=== PATIENT | male | born 1950 | race African-American/Black ===

== ENCOUNTER 2019-09-25 20:30 | Inpatient (IN) | payer MEDICARE, OTHER ==
[~2019-09-25] VITALS: Ht 182.9 cm; Wt 109.8 kg
[2019-09-25] MEDS ORDERED: SODIUM CHLORIDE 0.9% 1,000 ML IV ONE (20:36)
[2019-09-25 21:07] LABS: BG BASE EXCESS -27.5 mmol/L (-2.0-2.0); BG CARBOXYHEMOGLOBIN 0.3 % (0.5-1.5); BG FRACTION INSPIRED OXYGEN 28; BG HCO3 ACT 5.5 mmol/L (22.0-26.0); BG METHEMOGLOBIN 0.4 % (0.0-1.5); BG OXYGEN SATURATION 83.9 % (92.0-98.5); BG OXYHEMOGLOBIN 83.3 % (94.0-97.0); BG PCO2 33.4 mmHg (35.0-45.0); BG PH 6.835 (7.350-7.450); BG PO2 75.9 mmHg (75.0-100.0); BG SAMPLE SITE RIGHT RADIAL; BG TOTAL HEMOGLOBIN 11.1 g/dL (12.0-18.0); BG VENT MODE NASAL CANNULA
[2019-09-25] MEDS ORDERED: SODIUM BICARBONATE 8.4% 1 MEQ/ML 50ML SYR IV ONE ×3 (21:15→23:30)
[2019-09-25] MEDS ORDERED: ETOMIDATE 2MG/ML 10ML VIAL IV ONE (21:30)
[2019-09-25] MEDS ORDERED: MIDAZOLAM HCL 50 MG in DEXTROSE 5% WATER 40 ML IV ONE (21:30)
[2019-09-25] MEDS ORDERED: SODIUM CHLORIDE 0.9% 1000ML BAG (SEPSIS BOLUS) IV ONE (21:45)
[2019-09-25] MEDS ORDERED: PIPERACILLIN/TAZ 3.375G PREMIX 50 ML IV ONE (22:00)
[2019-09-25 22:01] LABS: HEMATOCRIT. 35.1 % (42.0-52.0); HEMOGLOBIN. 10.8 g/dL (14.0-18.0); MEAN CORPUSCULAR HEMOGLOBIN 33.2 pg (28.0-32.0); MEAN CORPUSCULAR VOLUME 108.3 fL (80.0-94.0); PLATELET 189 x1000/uL (130-400); RED BLOOD CELL COUNT 3.24 mill/uL (4.7-6.1); RED CELL DISTRIBUTION WIDTH 17.4 % (11.6-14.6)
[2019-09-25 22:09] LABS: CHLORIDE 110 mEq/L (98-107)
[2019-09-25 22:18] LABS: CREATINE KINASE 77 IU/L (39-308)
[2019-09-25 22:19] LABS: NUCLEATED RED BLOOD CELLS 4 /100 WBC; PLATELET ESTIMATE NORMAL
[2019-09-25 22:25] LABS: PROTHROMBIN TIME 10.6 sec (9.6-11.0)
[2019-09-25] MEDS ORDERED: ACETAMINOPHEN 325MG TABLET PO PRN (23:00)
[2019-09-25] MEDS ORDERED: DOCUSATE SODIUM 100MG CAPSULE PO PRN (23:00)
[2019-09-25] MEDS ORDERED: ONDANSETRON HCL 4MG/2ML INJ IV PRN (23:00)
[2019-09-25] MEDS ORDERED: GUAIFENESIN 200MG/10ML SUGAR FREE UDC PO PRN (23:00)
[2019-09-25] MEDS ORDERED: MAGNESIUM/ALUMINUM HYDROXIDE/SIMETHICONE 30ML UDC PO PRN (23:00)
[2019-09-25] MEDS ORDERED: IPRATROPIUM/ALBUTEROL 0.5-3(2.5)MG/3ML NEB ORI PRN (23:00)
[2019-09-25] MEDS ORDERED: PIPERACILLIN/TAZ 3.375G PREMIX 50 ML IV SCH (23:00)
[2019-09-25] MEDS ORDERED: NOREPINEPHRINE 4 MG in DEXT 5% WATER 246 ML IV PRN (23:00)
[2019-09-25 23:03] LABS: CLARITY URINE CLEAR (CLEAR); COLOR URINE DARK YELLOW (YELLOW); KETONES URINE TRACE (NEGATIVE); LEUKOCYTE ESTERASE URINE NEGATIVE (NEGATIVE); NITRITE URINE NEGATIVE (NEGATIVE); OCCULT BLOOD URINE NEGATIVE (NEGATIVE); PROTEIN URINE 3+ (NEGATIVE); SPECIFIC GRAVITY URINE 1.017 (1.005-1.030)
[2019-09-25 23:10] LABS: BG BASE EXCESS -24.2 mmol/L (-2.0-2.0); BG CARBOXYHEMOGLOBIN 0.3 % (0.5-1.5); BG DEOXYHEMOGLOBIN 35.5 % (0.0-5.0); BG FRACTION INSPIRED OXYGEN 100; BG HCO3 ACT 8.7 mmol/L (22.0-26.0); BG METHEMOGLOBIN 0.5 % (0.0-1.5); BG OXYGEN SATURATION 64.2 % (92.0-98.5); BG OXYHEMOGLOBIN 63.7 % (94.0-97.0); BG PCO2 50.4 mmHg (35.0-45.0); BG PH 6.855 (7.350-7.450); BG PO2 50.6 mmHg (75.0-100.0); BG SAMPLE SITE RIGHT RADIAL; BG TIDAL VOLUME(mL) 500 mL; BG TOTAL HEMOGLOBIN 10.1 g/dL (12.0-18.0); BG VENT MODE VENT - A/C; BG VENT RATE 20 set
[2019-09-25 23:12] LABS: *AMPHETAMINES SCREEN URINE NEGATIVE (NEGATIVE)
[2019-09-25 23:13] LABS: *BARBITURATES SCREEN URINE NEGATIVE (NEGATIVE); *BENZODIAZEPINES SCREEN URINE NEGATIVE (NEGATIVE); *COCAINE SCREEN URINE NEGATIVE (NEGATIVE); METHADONE URINE SCREEN NEGATIVE (NEGATIVE); OPIATES URINE SCREEN NEGATIVE (NEGATIVE); PHENCYCLIDINE URINE SCREEN NEGATIVE (NEGATIVE)
[2019-09-25 23:14] LABS: CANNABINOID URINE SCREEN NEGATIVE (NEGATIVE)
[2019-09-25] MEDS ORDERED: SODIUM BICARBONATE 150 MEQ in SODIUM CHLORIDE 0.45% 1,000 ML IV SCH (23:15)
[2019-09-25] MEDS ORDERED: ALBUMIN HUMAN 25GM/100ML (25%) IV ONE (23:30)
[2019-09-26] MEDS: DEXT 5%/0.45% NACL 1000ML 1,000 ML IV SCH ×2 (01:51→20:00)
[2019-09-26] MEDS ORDERED: VANCOMYCIN 1250MG in DEXTROSE 5% WATER 250ML IV NR (02:00)
[2019-09-26] MEDS ORDERED: MIDAZOLAM HCL 100 MG in DEXT 5% WATER 80 ML IV PRN (02:15)
[2019-09-26 05:25] LABS: BASOPHILS % 0.3 % (0.0-2.0); EOSINOPHILS % 0.1 % (0.0-5.0); HEMATOCRIT. 27.3 % (42.0-52.0); HEMOGLOBIN. 9.2 g/dL (14.0-18.0); LYMPHOCYTES % 14.5 % (20.0-50.0); MEAN CORPUSCULAR HEMOGLOBIN 33.9 pg (28.0-32.0); MEAN CORPUSCULAR VOLUME 100.7 fL (80.0-94.0); MEAN PLATELET VOLUME 8.2 fl (7.4-10.4); MONOCYTES % 6.5 % (2.0-8.0); NEUTROPHILS % 78.6 % (40.0-76.0); PLATELET 116 x1000/uL (130-400); RED BLOOD CELL COUNT 2.71 mill/uL (4.7-6.1); RED CELL DISTRIBUTION WIDTH 16.3 % (11.6-14.6)
[2019-09-26 05:40] LABS: CHLORIDE 111 mEq/L (98-107)
[2019-09-26 05:47] LABS: LDL CHOLESTEROL 62 mg/dL (5-100)
[2019-09-26 05:48] LABS: TOTAL IRON BINDING CAPACITY 146 ug/dL (250-450)
[2019-09-26 05:49] LABS: HDL CHOLESTEROL 93 mg/dL (40-59)
[2019-09-26 05:50] LABS: CREATINE KINASE 440 IU/L (39-308)
[2019-09-26 05:51] LABS: CREATINE KINASE MB FRACTION 11.8 ng/mL (0.5-3.6)
[2019-09-26 06:00] LABS: FOLIC ACID (FOLATE) SERUM 2.8 ng/mL (>5.38)
[2019-09-26 10:31] LABS: BG BASE EXCESS -8.1 mmol/L (-2.0-2.0); BG CARBOXYHEMOGLOBIN 0.2 % (0.5-1.5); BG DEOXYHEMOGLOBIN 0.7 % (0.0-5.0); BG FRACTION INSPIRED OXYGEN 100; BG HCO3 ACT 16.2 mmol/L (22.0-26.0); BG METHEMOGLOBIN 0.4 % (0.0-1.5); BG OXYGEN SATURATION 99.3 % (92.0-98.5); BG OXYHEMOGLOBIN 98.7 % (94.0-97.0); BG PCO2 29.5 mmHg (35.0-45.0); BG PH 7.358 (7.350-7.450); BG PO2 467.7 mmHg (75.0-100.0); BG SAMPLE SITE RIGHT RADIAL; BG TIDAL VOLUME(mL) 500 mL; BG TOTAL HEMOGLOBIN 10.6 g/dL (12.0-18.0); BG VENT MODE VENT - A/C; BG VENT RATE 24 set
[2019-09-26] MEDS ORDERED: PROPOFOL 10MG/ML 100ML 100 ML IV PRN (11:30)
[2019-09-26] MEDS ORDERED: FENTANYL CITRATE/PF 500 MCG in SODIUM CHLORIDE 0.9% 40 ML IV PRN (11:30)
[2019-09-26] MEDS ORDERED: IPRATROPIUM/ALBUTEROL 0.5-3(2.5)MG/3ML NEB HHN SCH (12:00)
[2019-09-26] MEDS ORDERED: SODIUM BICARBONATE 4% (2.4MEQ) 5ML VIAL IV ONE (12:46)
[2019-09-26] MEDS ORDERED: LIDOCAINE HCL 1% 20ML VIAL (Pyxis) INJ ONE (12:47)
[2019-09-26 15:17] LABS: CREATINE KINASE MB FRACTION 32.6 ng/mL (0.5-3.6)
[2019-09-26] MEDS: ENOXAPARIN 30MG/0.3ML SYR SUBCUT SCH (16:22)
[2019-09-26] MEDS: PANTOPRAZOLE SODIUM 40 MG/VIAL IV SCH (16:22)
[2019-09-26] MEDS: PIPERACILLIN/TAZOBACTAM 2.25 G in DEXTROSE 5% WATER 50 ML IV SCH (17:16)
[2019-09-26] MEDS ORDERED: ALBUMIN HUMAN 25GM/100ML (25%) IV SCH (21:30)
[2019-09-26] MEDS ORDERED: VASOPRESSIN 10 UNIT in SODIUM CHLORIDE 0.9% 100 ML IV PRN (21:45)
[2019-09-27] VITALS (52 sets, daily range): BP systolic 79–139; BP diastolic 41–86
[2019-09-27 04:31] LABS: CHLORIDE 111 mEq/L (98-107)
[2019-09-27 04:37] LABS: PHOSPHORUS 2.3 mg/dL (2.5-4.9)
[2019-09-27 05:16] LABS: BASOPHILS % 0.6 % (0.0-2.0); EOSINOPHILS % 0.4 % (0.0-5.0); HEMATOCRIT. 24.1 % (42.0-52.0); HEMOGLOBIN. 8.2 g/dL (14.0-18.0); LYMPHOCYTES % 8.3 % (20.0-50.0); MEAN CORPUSCULAR HEMOGLOBIN 33.6 pg (28.0-32.0); MEAN CORPUSCULAR VOLUME 98.4 fL (80.0-94.0); MEAN PLATELET VOLUME 8.9 fl (7.4-10.4); NEUTROPHILS % 85.7 % (40.0-76.0); PLATELET 92 x1000/uL (130-400); RED BLOOD CELL COUNT 2.45 mill/uL (4.7-6.1); RED CELL DISTRIBUTION WIDTH 15.3 % (11.6-14.6)
[2019-09-27] MEDS ORDERED: MAGNESIUM 4 G PREMIX 100 ML IV SCH (08:00)
[2019-09-27 08:12] LABS: CREATINE KINASE MB FRACTION 17.4 ng/mL (0.5-3.6)
[2019-09-27 08:27] LABS: BG CARBOXYHEMOGLOBIN 0.1 % (0.5-1.5); BG DEOXYHEMOGLOBIN 1.5 % (0.0-5.0); BG FRACTION INSPIRED OXYGEN 40; BG HCO3 ACT 22.2 mmol/L (22.0-26.0); BG METHEMOGLOBIN 0.4 % (0.0-1.5); BG OXYGEN SATURATION 98.5 % (92.0-98.5); BG PCO2 30.3 mmHg (35.0-45.0); BG PH 7.482 (7.350-7.450); BG PO2 138.2 mmHg (75.0-100.0); BG SAMPLE SITE RIGHT RADIAL; BG TIDAL VOLUME(mL) 500 mL; BG TOTAL HEMOGLOBIN 7.5 g/dL (12.0-18.0); BG VENT MODE VENT - A/C; BG VENT RATE 24 set
[2019-09-27] MEDS: ZINC SULFATE 220 MG ( 50 ) CAPSULE PO SCH ×2 (08:32→09:00)
[2019-09-27] MEDS: ASCORBIC ACID 500 MG TABLET PO SCH ×4 (08:32→21:43)
[2019-09-27] MEDS: PANTOPRAZOLE SODIUM 40 MG/VIAL IV SCH (09:35)
[2019-09-27] MEDS: ENOXAPARIN 30MG/0.3ML SYR SUBCUT SCH (09:35)
[2019-09-27] MEDS: DEXT 5%/0.45% NACL 1000ML 1,000 ML IV SCH (09:35)
[2019-09-27] MEDS ORDERED: VANCOMYCIN 1 G PREMIX 200 ML IV SCH ×2 (10:00→15:30)
[2019-09-27] MEDS: PIPERACILLIN/TAZOBACTAM 2.25 G in DEXTROSE 5% WATER 50 ML IV SCH ×2 (12:58→18:00)
[2019-09-27] MEDS ORDERED: PROPOFOL 10MG/ML 100ML 100 ML IV PRN (13:30)
[2019-09-27 14:17] LABS: HEMATOCRIT. 22.4 % (42.0-52.0); HEMOGLOBIN. 7.7 g/dL (14.0-18.0); MEAN CORPUSCULAR HEMOGLOBIN 33.4 pg (28.0-32.0); MEAN CORPUSCULAR VOLUME 97.6 fL (80.0-94.0); MEAN PLATELET VOLUME 8.4 fl (7.4-10.4); PLATELET 84 x1000/uL (130-400); RED CELL DISTRIBUTION WIDTH 15.4 % (11.6-14.6)
[2019-09-27] MEDS: FENTANYL 1,000 MCG in SODIUM CHLORIDE 0.9% 100 ML IV PRN (14:26)
[2019-09-27 14:31] LABS: CHLORIDE 111 mEq/L (98-107)
[2019-09-27 14:37] LABS: NUCLEATED RED BLOOD CELLS 2 /100 WBC; PHOSPHORUS 1.7 mg/dL (2.5-4.9)
[2019-09-27 14:38] LABS: PLATELET ESTIMATE DECREASED
[2019-09-27] MEDS ORDERED: MICONAZOLE NITRATE 2% OINT 71GM TOP SCH (21:00)
[2019-09-28] VITALS (83 sets, daily range): BP systolic 99–157; BP diastolic 47–81
[2019-09-28] MEDS: PIPERACILLIN/TAZOBACTAM 2.25 G in DEXTROSE 5% WATER 50 ML IV SCH ×6 (05:48→23:23)
[2019-09-28 06:17] LABS: T4 FREE 1.14 ng/dL (0.76-1.46)
[2019-09-28 08:47] LABS: VITAMIN B12 SERUM > 2000.0 pg/mL (211-911)
[2019-09-28] MEDS: PANTOPRAZOLE SODIUM 40 MG/VIAL IV SCH (08:57)
[2019-09-28] MEDS: ASCORBIC ACID 500 MG TABLET PO SCH ×2 (08:58→21:03)
[2019-09-28] MEDS: ZINC SULFATE 220 MG ( 50 ) CAPSULE PO SCH (08:58)
[2019-09-28 09:23] LABS: BG BASE EXCESS -1.8 mmol/L (-2.0-2.0); BG CARBOXYHEMOGLOBIN 0.3 % (0.5-1.5); BG DEOXYHEMOGLOBIN 1.4 % (0.0-5.0); BG FRACTION INSPIRED OXYGEN 40; BG METHEMOGLOBIN 0.3 % (0.0-1.5); BG OXYGEN SATURATION 98.6 % (92.0-98.5); BG PH 7.441 (7.350-7.450); BG PO2 149.2 mmHg (75.0-100.0); BG SAMPLE SITE RIGHT RADIAL; BG TIDAL VOLUME(mL) 500 mL; BG TOTAL HEMOGLOBIN 8.1 g/dL (12.0-18.0); BG VENT MODE VENT - A/C; BG VENT RATE 20 set
[2019-09-28] MEDS ORDERED: IPRATROPIUM/ALBUTEROL 0.5-3(2.5)MG/3ML NEB HHN PRN (09:45)
[2019-09-28] MEDS: DEXT 5%/0.45% NACL 1000ML 1,000 ML IV SCH ×2 (10:30→22:30)
[2019-09-28] MEDS: FENTANYL 1,000 MCG in SODIUM CHLORIDE 0.9% 100 ML IV PRN (13:02)
[2019-09-28] MEDS: IPRATROPIUM/ALBUTEROL 0.5-3(2.5)MG/3ML NEB HHN SCH ×2 (14:35→20:59)
[2019-09-28 16:55] LABS: BASOPHILS % 0.4 % (0.0-2.0); EOSINOPHILS % 0.7 % (0.0-5.0); HEMATOCRIT. 25.4 % (42.0-52.0); HEMOGLOBIN. 8.5 g/dL (14.0-18.0); MEAN CORPUSCULAR HEMOGLOBIN 33.4 pg (28.0-32.0); MEAN CORPUSCULAR VOLUME 99.4 fL (80.0-94.0); MEAN PLATELET VOLUME 9.1 fl (7.4-10.4); MONOCYTES % 5.9 % (2.0-8.0); PLATELET 67 x1000/uL (130-400); RED BLOOD CELL COUNT 2.56 mill/uL (4.7-6.1); RED CELL DISTRIBUTION WIDTH 16.1 % (11.6-14.6)
[2019-09-28 17:01] LABS: CHLORIDE 118 mEq/L (98-107)
[2019-09-28 17:08] LABS: PHOSPHORUS 1.8 mg/dL (2.5-4.9)
[2019-09-28 17:58] LABS: HEPATITIS A AB IGM NEGATIVE (NEGATIVE)
[2019-09-28 18:06] LABS: HEPATITIS B SURFACE ANTIGEN REACTIVE PEND CONFIR
[2019-09-28] MEDS ORDERED: SODIUM CHLORIDE 0.9% 1000ML BAG (SEPSIS BOLUS) IV ONE (20:45)
[2019-09-28] MEDS ORDERED: SODIUM CHLORIDE 0.9% 500 ML IV SCH (21:00)
[2019-09-28] MEDS ORDERED: POTASSIUM PHOS,M-BASIC-D-BASIC 20 MMOL in DEXT 5% WATER 243.3333 ML IV NR (22:00)
[2019-09-29] VITALS (46 sets, daily range): BP systolic 84–162; BP diastolic 42–95
[2019-09-29] MEDS: ACETAMINOPHEN 325MG TABLET PO PRN ×2 (01:27→17:29)
[2019-09-29] MEDS: LORAZEPAM 2MG/ML CPJ IV PRN ×3 (02:00→14:52)
[2019-09-29] MEDS: IPRATROPIUM/ALBUTEROL 0.5-3(2.5)MG/3ML NEB HHN SCH ×4 (02:46→20:37)
[2019-09-29] MEDS: PIPERACILLIN/TAZOBACTAM 2.25 G in DEXTROSE 5% WATER 50 ML IV SCH ×4 (06:09→23:09)
[2019-09-29 06:46] LABS: HEMATOCRIT. 22.3 % (42.0-52.0); HEMOGLOBIN. 7.5 g/dL (14.0-18.0); MEAN CORPUSCULAR HEMOGLOBIN 33.4 pg (28.0-32.0); MEAN CORPUSCULAR VOLUME 99.4 fL (80.0-94.0); MEAN PLATELET VOLUME 9.2 fl (7.4-10.4); PLATELET 55 x1000/uL (130-400); RED BLOOD CELL COUNT 2.24 mill/uL (4.7-6.1); RED CELL DISTRIBUTION WIDTH 15.8 % (11.6-14.6)
[2019-09-29 07:33] LABS: CHLORIDE 114 mEq/L (98-107)
[2019-09-29 07:35] LABS: PHOSPHORUS 2.8 mg/dL (2.5-4.9)
[2019-09-29 07:38] LABS: CREATINE KINASE 904 IU/L (39-308)
[2019-09-29] MEDS: PANTOPRAZOLE SODIUM 40 MG/VIAL IV SCH (08:56)
[2019-09-29] MEDS: DEXT 5%/0.45% NACL 1000ML 1,000 ML IV SCH ×2 (08:56→17:29)
[2019-09-29] MEDS: ASCORBIC ACID 500 MG TABLET PO SCH ×2 (08:56→20:15)
[2019-09-29] MEDS: ZINC SULFATE 220 MG ( 50 ) CAPSULE PO SCH (08:56)
[2019-09-29] MEDS: FENTANYL 1,000 MCG in SODIUM CHLORIDE 0.9% 100 ML IV PRN ×2 (08:59→23:15)
[2019-09-29 10:11] LABS: BG BASE EXCESS -4.4 mmol/L (-2.0-2.0); BG CARBOXYHEMOGLOBIN 0.6 % (0.5-1.5); BG DEOXYHEMOGLOBIN 1.9 % (0.0-5.0); BG FRACTION INSPIRED OXYGEN 40; BG METHEMOGLOBIN 0.1 % (0.0-1.5); BG OXYGEN SATURATION 98.1 % (92.0-98.5); BG OXYHEMOGLOBIN 97.4 % (94.0-97.0); BG PCO2 33.5 mmHg (35.0-45.0); BG PH 7.394 (7.350-7.450); BG PO2 157.8 mmHg (75.0-100.0); BG SAMPLE SITE RIGHT RADIAL; BG TIDAL VOLUME(mL) 500 mL; BG TOTAL HEMOGLOBIN 7.7 g/dL (12.0-18.0); BG VENT MODE VENT - A/C; BG VENT RATE 18 set
[2019-09-29 11:16] LABS: PLATELET ESTIMATE DECREASED
[2019-09-29] MEDS ORDERED: VANCOMYCIN 1 G PREMIX 200 ML IV SCH (12:00)
[2019-09-29] MEDS ORDERED: VANCOMYCIN 1 G PREMIX 200 ML IV NR (12:00)
[2019-09-29] MEDS ORDERED: MAGNESIUM 2 G PREMIX 50 ML IV SCH (20:30)
[2019-09-30] VITALS (48 sets, daily range): BP systolic 89–152; BP diastolic 29–102
[2019-09-30] MEDS: IPRATROPIUM/ALBUTEROL 0.5-3(2.5)MG/3ML NEB HHN SCH ×4 (02:04→21:46)
[2019-09-30] MEDS: ACETAMINOPHEN 325MG TABLET PO PRN ×2 (03:39→20:37)
[2019-09-30] MEDS: PIPERACILLIN/TAZOBACTAM 2.25 G in DEXTROSE 5% WATER 50 ML IV SCH ×4 (05:18→23:04)
[2019-09-30 05:44] LABS: CHLORIDE 115 mEq/L (98-107)
[2019-09-30 05:53] LABS: PHOSPHORUS 1.8 mg/dL (2.5-4.9)
[2019-09-30 05:56] LABS: CREATINE KINASE 640 IU/L (39-308)
[2019-09-30 06:56] LABS: HEMOGLOBIN. 7.3 g/dL (14.0-18.0); MEAN CORPUSCULAR HEMOGLOBIN 34.3 pg (28.0-32.0); MEAN CORPUSCULAR VOLUME 97.7 fL (80.0-94.0); MEAN PLATELET VOLUME 8.1 fl (7.4-10.4); RED BLOOD CELL COUNT 2.14 mill/uL (4.7-6.1); RED CELL DISTRIBUTION WIDTH 15.8 % (11.6-14.6)
[2019-09-30 07:23] LABS: HEMATOCRIT. 20.9 % (42.0-52.0); PLATELET 38 x1000/uL (130-400)
[2019-09-30] MEDS: ASCORBIC ACID 500 MG TABLET PO SCH ×2 (08:20→20:32)
[2019-09-30] MEDS: PANTOPRAZOLE SODIUM 40 MG/VIAL IV SCH (08:20)
[2019-09-30] MEDS: ZINC SULFATE 220 MG ( 50 ) CAPSULE PO SCH (08:20)
[2019-09-30] MEDS: FENTANYL 1,000 MCG in SODIUM CHLORIDE 0.9% 100 ML IV PRN ×2 (09:09→21:39)
[2019-09-30 09:38] LABS: BG BASE EXCESS -3.8 mmol/L (-2.0-2.0); BG CARBOXYHEMOGLOBIN 0.3 % (0.5-1.5); BG DEOXYHEMOGLOBIN 1.9 % (0.0-5.0); BG FRACTION INSPIRED OXYGEN 30; BG HCO3 ACT 20.1 mmol/L (22.0-26.0); BG METHEMOGLOBIN 0.5 % (0.0-1.5); BG OXYGEN SATURATION 98.1 % (92.0-98.5); BG OXYHEMOGLOBIN 97.3 % (94.0-97.0); BG PH 7.429 (7.350-7.450); BG PO2 124.7 mmHg (75.0-100.0); BG SAMPLE SITE RIGHT RADIAL; BG TIDAL VOLUME(mL) 500 mL; BG TOTAL HEMOGLOBIN 6.8 g/dL (12.0-18.0); BG VENT MODE VENT - A/C; BG VENT RATE 14 set
[2019-09-30] MEDS: LORAZEPAM 2MG/ML CPJ IV PRN (10:09)
[2019-09-30] MEDS: DEXT 5%/0.45% NACL 1000ML 1,000 ML IV SCH (11:52)
[2019-09-30 12:07] LABS: PLATELET ESTIMATE MARKEDLY DECREASED
[2019-09-30 16:31] LABS: BG BASE EXCESS -2.6 mmol/L (-2.0-2.0); BG CARBOXYHEMOGLOBIN 0.5 % (0.5-1.5); BG DEOXYHEMOGLOBIN 3.2 % (0.0-5.0); BG FRACTION INSPIRED OXYGEN 30; BG HCO3 ACT 22.1 mmol/L (22.0-26.0); BG METHEMOGLOBIN 0.7 % (0.0-1.5); BG OXYGEN SATURATION 96.8 % (92.0-98.5); BG OXYHEMOGLOBIN 95.6 % (94.0-97.0); BG PCO2 37.3 mmHg (35.0-45.0); BG PO2 91.7 mmHg (75.0-100.0); BG PRESSURE SUPPORT 15; BG SAMPLE SITE RIGHT RADIAL; BG TIDAL VOLUME(mL) 500 mL; BG TOTAL HEMOGLOBIN 7.3 g/dL (12.0-18.0); BG VENT MODE VENT - SIMV; BG VENT RATE 10 set
[2019-09-30] MEDS ORDERED: POTASSIUM PHOS,M-BASIC-D-BASIC 20 MMOL in DEXT 5% WATER 250 ML IV NR (19:00)
[2019-09-30] MEDS ORDERED: MAGNESIUM 2 G PREMIX 50 ML IV SCH (20:00)
[2019-09-30] MEDS: METOPROLOL TARTRATE 25MG TABLET NG SCH (20:33)
[2019-09-30] MEDS ORDERED: VANCOMYCIN 1 G PREMIX 200 ML IV NR (22:30)
[2019-10-01] VITALS (70 sets, daily range): BP systolic 89–147; BP diastolic 43–100
[2019-10-01] MEDS: IPRATROPIUM/ALBUTEROL 0.5-3(2.5)MG/3ML NEB HHN SCH ×4 (04:11→19:53)
[2019-10-01] MEDS: PIPERACILLIN/TAZOBACTAM 2.25 G in DEXTROSE 5% WATER 50 ML IV SCH (05:04)
[2019-10-01 05:57] LABS: MEAN CORPUSCULAR HEMOGLOBIN 33.9 pg (28.0-32.0); MEAN CORPUSCULAR VOLUME 98.5 fL (80.0-94.0); MEAN PLATELET VOLUME 8.9 fl (7.4-10.4); PLATELET 59 x1000/uL (130-400); RED BLOOD CELL COUNT 1.99 mill/uL (4.7-6.1); RED CELL DISTRIBUTION WIDTH 15.8 % (11.6-14.6)
[2019-10-01 06:00] LABS: HEMOGLOBIN. 6.7 g/dL (14.0-18.0)
[2019-10-01 06:01] LABS: HEMATOCRIT. 19.6 % (42.0-52.0)
[2019-10-01 06:25] LABS: CHLORIDE 112 mEq/L (98-107)
[2019-10-01 06:30] LABS: PHOSPHORUS 2.8 mg/dL (2.5-4.9)
[2019-10-01 07:56] LABS: BG BASE EXCESS -2.2 mmol/L (-2.0-2.0); BG CARBOXYHEMOGLOBIN 0.3 % (0.5-1.5); BG DEOXYHEMOGLOBIN 1.3 % (0.0-5.0); BG FRACTION INSPIRED OXYGEN 30; BG HCO3 ACT 21.4 mmol/L (22.0-26.0); BG METHEMOGLOBIN 0.6 % (0.0-1.5); BG OXYGEN SATURATION 98.7 % (92.0-98.5); BG OXYHEMOGLOBIN 97.8 % (94.0-97.0); BG PCO2 31.3 mmHg (35.0-45.0); BG PH 7.453 (7.350-7.450); BG PO2 147.2 mmHg (75.0-100.0); BG SAMPLE SITE RIGHT RADIAL; BG TIDAL VOLUME(mL) 500 mL; BG TOTAL HEMOGLOBIN 6.7 g/dL (12.0-18.0); BG VENT MODE VENT - A/C; BG VENT RATE 14 set
[2019-10-01] MEDS: PANTOPRAZOLE SODIUM 40 MG/VIAL IV SCH (08:46)
[2019-10-01] MEDS: ASCORBIC ACID 500 MG TABLET PO SCH ×2 (08:46→21:39)
[2019-10-01] MEDS: DEXT 5%/0.45% NACL 1000ML 1,000 ML IV SCH (08:47)
[2019-10-01] MEDS: ZINC SULFATE 220 MG ( 50 ) CAPSULE PO SCH (08:47)
[2019-10-01] MEDS: METOPROLOL TARTRATE 25MG TABLET NG SCH ×2 (08:47→21:39)
[2019-10-01] MEDS: ACETAMINOPHEN 325MG TABLET PO PRN (09:06)
[2019-10-01] MEDS: FENTANYL 1,000 MCG in SODIUM CHLORIDE 0.9% 100 ML IV PRN ×3 (09:07→20:02)
[2019-10-01] MEDS ORDERED: FENTANYL CITRATE/PF 500 MCG in SODIUM CHLORIDE 0.9% 40 ML IV PRN (10:15)
[2019-10-01 11:02] LABS: NUCLEATED RED BLOOD CELLS 1 /100 WBC; PLATELET ESTIMATE DECREASED
[2019-10-01] MEDS: PROPOFOL 10MG/ML 100ML 100 ML IV PRN (15:46)
[2019-10-01 17:46] LABS: HEMOGLOBIN 7.1 g/dL (14.0-18.0)
[2019-10-01 17:50] LABS: HEMATOCRIT 20.7 % (42.0-52.0)
[2019-10-02] VITALS (74 sets, daily range): BP systolic 74–184; BP diastolic 16–130
[2019-10-02] MEDS: FENTANYL 1,000 MCG in SODIUM CHLORIDE 0.9% 100 ML IV PRN ×2 (01:31→07:47)
[2019-10-02] MEDS: IPRATROPIUM/ALBUTEROL 0.5-3(2.5)MG/3ML NEB HHN SCH ×3 (01:57→20:56)
[2019-10-02] MEDS: PROPOFOL 10MG/ML 100ML 100 ML IV PRN ×3 (03:00→09:23)
[2019-10-02] MEDS: DEXT 5%/0.45% NACL 1000ML 1,000 ML IV SCH (05:16)
[2019-10-02 06:50] LABS: CHLORIDE 112 mEq/L (98-107)
[2019-10-02 07:03] LABS: PHOSPHORUS 2.4 mg/dL (2.5-4.9)
[2019-10-02 07:30] LABS: HEMOGLOBIN. 8.9 g/dL (14.0-18.0); MEAN CORPUSCULAR HEMOGLOBIN 32.5 pg (28.0-32.0); MEAN CORPUSCULAR VOLUME 94.7 fL (80.0-94.0); MEAN PLATELET VOLUME 9.1 fl (7.4-10.4); PLATELET 79 x1000/uL (130-400); RED BLOOD CELL COUNT 2.75 mill/uL (4.7-6.1); RED CELL DISTRIBUTION WIDTH 17.5 % (11.6-14.6)
[2019-10-02] MEDS: METOPROLOL TARTRATE 25MG TABLET NG SCH ×2 (09:00→21:19)
[2019-10-02] MEDS: ZINC SULFATE 220 MG ( 50 ) CAPSULE PO SCH (09:21)
[2019-10-02] MEDS: ASCORBIC ACID 500 MG TABLET PO SCH ×2 (09:21→21:18)
[2019-10-02] MEDS: PANTOPRAZOLE SODIUM 40 MG/VIAL IV SCH (09:21)
[2019-10-02 11:04] LABS: BG CARBOXYHEMOGLOBIN 0.2 % (0.5-1.5); BG DEOXYHEMOGLOBIN 2.3 % (0.0-5.0); BG FRACTION INSPIRED OXYGEN 30; BG HCO3 ACT 21.3 mmol/L (22.0-26.0); BG METHEMOGLOBIN 0.4 % (0.0-1.5); BG OXYGEN SATURATION 97.7 % (92.0-98.5); BG OXYHEMOGLOBIN 97.1 % (94.0-97.0); BG PCO2 35.1 mmHg (35.0-45.0); BG PH 7.401 (7.350-7.450); BG PRESSURE SUPPORT 8; BG SAMPLE SITE RIGHT RADIAL; BG TOTAL HEMOGLOBIN 9.1 g/dL (12.0-18.0); BG VENT MODE VENT - CPAP
[2019-10-02 12:54] LABS: NUCLEATED RED BLOOD CELLS 1 /100 WBC
[2019-10-02 12:55] LABS: PLATELET ESTIMATE DECREASED
[2019-10-02] MEDS: MORPHINE SULFATE 2 MG/ML CPJ (NOT FOR IM USE) IV PRN ×2 (13:44→21:20)
[2019-10-02] MEDS: LORAZEPAM 2MG/ML CPJ IV PRN (15:34)
[2019-10-02] MEDS: ACETAMINOPHEN 325MG TABLET PO PRN (21:18)
[2019-10-03] VITALS (45 sets, daily range): BP systolic 105–177; BP diastolic 16–126
[2019-10-03] MEDS: LORAZEPAM 2MG/ML CPJ IV PRN (00:25)
[2019-10-03] MEDS: DEXT 5%/0.45% NACL 1000ML 1,000 ML IV SCH ×2 (00:38→21:07)
[2019-10-03] MEDS: IPRATROPIUM/ALBUTEROL 0.5-3(2.5)MG/3ML NEB HHN SCH ×4 (01:14→20:37)
[2019-10-03] MEDS: CLONIDINE 0.1MG TABLET PO PRN (03:36)
[2019-10-03] MEDS: MORPHINE SULFATE 2 MG/ML CPJ (NOT FOR IM USE) IV PRN (03:57)
[2019-10-03 05:16] LABS: HEMATOCRIT. 25.4 % (42.0-52.0); HEMOGLOBIN. 8.7 g/dL (14.0-18.0); MEAN CORPUSCULAR HEMOGLOBIN 32.5 pg (28.0-32.0); MEAN CORPUSCULAR VOLUME 94.3 fL (80.0-94.0); MEAN PLATELET VOLUME 8.5 fl (7.4-10.4); PLATELET 135 x1000/uL (130-400); RED BLOOD CELL COUNT 2.69 mill/uL (4.7-6.1); RED CELL DISTRIBUTION WIDTH 17.8 % (11.6-14.6)
[2019-10-03 05:25] LABS: CHLORIDE 115 mEq/L (98-107)
[2019-10-03 05:30] LABS: PHOSPHORUS 2.2 mg/dL (2.5-4.9)
[2019-10-03] MEDS: PANTOPRAZOLE SODIUM 40 MG/VIAL IV SCH (09:52)
[2019-10-03] MEDS: ASCORBIC ACID 500 MG TABLET PO SCH ×3 (09:53→21:07)
[2019-10-03] MEDS: METOPROLOL TARTRATE 25MG TABLET NG SCH ×3 (09:53→21:07)
[2019-10-03] MEDS: ZINC SULFATE 220 MG ( 50 ) CAPSULE PO SCH (09:53)
[2019-10-03] MEDS ORDERED: POTASSIUM PHOS,M-BASIC-D-BASIC 15 MMOL in DEXT 5% WATER 245 ML IV NR (11:00)
[2019-10-03 14:04] LABS: NUCLEATED RED BLOOD CELLS 2 /100 WBC; PLATELET ESTIMATE NORMAL
[2019-10-03] MEDS: FOLIC ACID 1MG TABLET PO SCH (18:32)
[2019-10-03] MEDS: THIAMINE HCL 100MG TABLET PO SCH (18:32)
[2019-10-03] MEDS: LACTULOSE 20G/30ML UDC PO NR ×2 (19:45→21:07)
[2019-10-04] VITALS (12 sets, daily range): BP systolic 122–164; BP diastolic 60–98
[2019-10-04] MEDS: IPRATROPIUM/ALBUTEROL 0.5-3(2.5)MG/3ML NEB HHN SCH ×5 (02:12→21:28)
[2019-10-04] MEDS: CLONIDINE 0.1MG TABLET PO PRN (05:48)
[2019-10-04 06:52] LABS: CHLORIDE 115 mEq/L (98-107)
[2019-10-04 06:58] LABS: PHOSPHORUS 2.1 mg/dL (2.5-4.9)
[2019-10-04] MEDS: FOLIC ACID 1MG TABLET PO SCH (08:36)
[2019-10-04] MEDS: ASCORBIC ACID 500 MG TABLET PO SCH ×2 (08:36→22:40)
[2019-10-04] MEDS: ZINC SULFATE 220 MG ( 50 ) CAPSULE PO SCH (08:36)
[2019-10-04] MEDS: METOPROLOL TARTRATE 25MG TABLET NG SCH ×2 (08:40→22:39)
[2019-10-04] MEDS: PANTOPRAZOLE SODIUM 40 MG/VIAL IV SCH (08:41)
[2019-10-04] MEDS: THIAMINE HCL 100MG TABLET PO SCH (08:42)
[2019-10-04] MEDS ORDERED: LACTULOSE 20G/30ML UDC PO NR (08:45)
[2019-10-04] MEDS: LORAZEPAM 2MG/ML CPJ IV PRN (08:47)
[2019-10-04 09:40] LABS: HEMATOCRIT. 26.1 % (42.0-52.0); MEAN CORPUSCULAR HEMOGLOBIN 32.2 pg (28.0-32.0); MEAN PLATELET VOLUME 8.5 fl (7.4-10.4); PLATELET 220 x1000/uL (130-400); RED BLOOD CELL COUNT 2.78 mill/uL (4.7-6.1)
[2019-10-04 10:33] LABS: PLATELET ESTIMATE NORMAL
[2019-10-04] MEDS ORDERED: POTASSIUM CHLORIDE 20MEQ TABLET SR PO NR (10:45)
[2019-10-04] MEDS ORDERED: MAGNESIUM OXIDE 400MG TABLET PO NR (10:45)
[2019-10-04] MEDS ORDERED: POTASSIUM PHOS,M-BASIC-D-BASIC 20 MMOL in DEXT 5% WATER 243.3333 ML IV NR (13:00)
[2019-10-04] MEDS ORDERED: MAGNESIUM 2 G PREMIX 50 ML IV NR (13:00)
[2019-10-04] MEDS ORDERED: REGADENOSON 0.4 MG/5 ML IV NR (16:15)
[2019-10-04] MEDS: MULTIVITAMINS,THER W-MINERALS TABLET PO SCH (17:12)
[2019-10-04] MEDS: DEXT 5%/0.45% NACL 1000ML 1,000 ML IV SCH (17:13)
[2019-10-05] VITALS (11 sets, daily range): BP systolic 132–173; BP diastolic 69–88
[2019-10-05] MEDS: IPRATROPIUM/ALBUTEROL 0.5-3(2.5)MG/3ML NEB HHN SCH ×4 (00:52→23:55)
[2019-10-05] MEDS: PANTOPRAZOLE SODIUM 40 MG/VIAL IV SCH (08:51)
[2019-10-05] MEDS: ZINC SULFATE 220 MG ( 50 ) CAPSULE PO SCH (08:51)
[2019-10-05] MEDS: THIAMINE HCL 100MG TABLET PO SCH (08:51)
[2019-10-05] MEDS: ASCORBIC ACID 500 MG TABLET PO SCH ×2 (08:51→19:58)
[2019-10-05] MEDS: MULTIVITAMINS,THER W-MINERALS TABLET PO SCH (08:51)
[2019-10-05] MEDS: FOLIC ACID 1MG TABLET PO SCH (08:51)
[2019-10-05] MEDS: METOPROLOL TARTRATE 25MG TABLET NG SCH ×2 (08:52→19:58)
[2019-10-05] MEDS: LACTULOSE 20G/30ML UDC PO SCH (09:43)
[2019-10-05] MEDS: LORAZEPAM 2MG/ML CPJ IV PRN (09:47)
[2019-10-05] MEDS: DEXT 5%/0.45% NACL 1000ML 1,000 ML IV SCH (12:52)
[2019-10-05 16:11] LABS: BG BASE EXCESS -6.5 mmol/L (-2.0-2.0); BG DEOXYHEMOGLOBIN 3.5 % (0.0-5.0); BG FRACTION INSPIRED OXYGEN 21; BG HCO3 ACT 15.6 mmol/L (22.0-26.0); BG METHEMOGLOBIN 0.2 % (0.0-1.5); BG OXYGEN SATURATION 96.5 % (92.0-98.5); BG OXYHEMOGLOBIN 96.3 % (94.0-97.0); BG PCO2 20.9 mmHg (35.0-45.0); BG PH 7.491 (7.350-7.450); BG PO2 89.5 mmHg (75.0-100.0); BG SAMPLE SITE RIGHT RADIAL; BG TOTAL HEMOGLOBIN 8.5 g/dL (12.0-18.0); BG VENT MODE ROOM AIR
[2019-10-05] MEDS ORDERED: MAGNESIUM 2 G PREMIX 50 ML IV NR (17:00)
[2019-10-05] MEDS ORDERED: POTASSIUM PHOS,M-BASIC-D-BASIC 20 MMOL in DEXT 5% WATER 243.3333 ML IV NR (17:30)
[2019-10-05 17:38] LABS: CHLORIDE 115 mEq/L (98-107)
[2019-10-05 17:43] LABS: HEMOGLOBIN. 8.6 g/dL (14.0-18.0); MEAN CORPUSCULAR HEMOGLOBIN 31.5 pg (28.0-32.0); MEAN CORPUSCULAR VOLUME 95.2 fL (80.0-94.0); MEAN PLATELET VOLUME 8.9 fl (7.4-10.4); PLATELET 299 x1000/uL (130-400); RED BLOOD CELL COUNT 2.73 mill/uL (4.7-6.1)
[2019-10-05 17:44] LABS: PHOSPHORUS 2.8 mg/dL (2.5-4.9)
[2019-10-05 19:33] LABS: ATYPICAL LYMPHOCYTES 1; PLATELET ESTIMATE NORMAL
[2019-10-05] MEDS: CLONIDINE 0.1MG TABLET PO PRN (23:32)
[2019-10-06] VITALS (12 sets, daily range): BP systolic 118–178; BP diastolic 51–102
[2019-10-06] MEDS: LORAZEPAM 2MG/ML CPJ IV PRN (00:52)
[2019-10-06 07:32] LABS: HEMATOCRIT 25.9 % (42.0-52.0); HEMOGLOBIN 8.8 g/dL (14.0-18.0); MEAN CORPUSCULAR HEMOGLOBIN 32.1 pg (28.0-32.0); MEAN CORPUSCULAR VOLUME 94.8 fL (80.0-94.0); PLATELET 357 x1000/uL (130-400); RED BLOOD CELL COUNT 2.73 mill/uL (4.7-6.1); RED CELL DISTRIBUTION WIDTH 17.4 % (11.6-14.6)
[2019-10-06 07:58] LABS: CHLORIDE 112 mEq/L (98-107)
[2019-10-06] MEDS: PANTOPRAZOLE SODIUM 40 MG/VIAL IV SCH (08:23)
[2019-10-06] MEDS: MULTIVITAMINS,THER W-MINERALS TABLET PO SCH (08:23)
[2019-10-06] MEDS: METOPROLOL TARTRATE 25MG TABLET NG SCH ×2 (08:23→21:11)
[2019-10-06] MEDS: THIAMINE HCL 100MG TABLET PO SCH (08:23)
[2019-10-06] MEDS: ZINC SULFATE 220 MG ( 50 ) CAPSULE PO SCH (08:23)
[2019-10-06] MEDS: FOLIC ACID 1MG TABLET PO SCH (08:23)
[2019-10-06] MEDS: ASCORBIC ACID 500 MG TABLET PO SCH ×2 (08:23→21:11)
[2019-10-06] MEDS: LACTULOSE 20G/30ML UDC PO SCH (08:44)
[2019-10-06] MEDS: DEXT 5%/0.45% NACL 1000ML 1,000 ML IV SCH (08:44)
[2019-10-06] MEDS: IPRATROPIUM/ALBUTEROL 0.5-3(2.5)MG/3ML NEB HHN SCH ×3 (08:57→20:08)
[2019-10-07] VITALS (12 sets, daily range): BP systolic 113–167; BP diastolic 26–87
[2019-10-07] MEDS: IPRATROPIUM/ALBUTEROL 0.5-3(2.5)MG/3ML NEB HHN SCH ×4 (02:07→20:13)
[2019-10-07 06:17] LABS: HEMATOCRIT. 25.1 % (42.0-52.0); HEMOGLOBIN. 8.6 g/dL (14.0-18.0); MEAN CORPUSCULAR HEMOGLOBIN 32.1 pg (28.0-32.0); MEAN CORPUSCULAR VOLUME 93.6 fL (80.0-94.0); MEAN PLATELET VOLUME 8.5 fl (7.4-10.4); PLATELET 464 x1000/uL (130-400); RED BLOOD CELL COUNT 2.68 mill/uL (4.7-6.1); RED CELL DISTRIBUTION WIDTH 17.4 % (11.6-14.6)
[2019-10-07 06:57] LABS: CHLORIDE 111 mEq/L (98-107)
[2019-10-07 07:02] LABS: PHOSPHORUS 2.6 mg/dL (2.5-4.9)
[2019-10-07] MEDS: ASCORBIC ACID 500 MG TABLET PO SCH ×2 (09:11→22:00)
[2019-10-07] MEDS: ZINC SULFATE 220 MG ( 50 ) CAPSULE PO SCH (09:11)
[2019-10-07] MEDS: MULTIVITAMINS,THER W-MINERALS TABLET PO SCH (09:11)
[2019-10-07] MEDS: THIAMINE HCL 100MG TABLET PO SCH (09:12)
[2019-10-07] MEDS: FOLIC ACID 1MG TABLET PO SCH (09:12)
[2019-10-07] MEDS: METOPROLOL TARTRATE 25MG TABLET NG SCH ×2 (09:12→22:00)
[2019-10-07] MEDS: PANTOPRAZOLE SODIUM 40 MG/VIAL IV SCH (09:12)
[2019-10-07] MEDS: LACTULOSE 20G/30ML UDC PO SCH (09:44)
[2019-10-07] MEDS ORDERED: POTASSIUM CHLORIDE 20MEQ TABLET SR PO SCH (11:00)
[2019-10-07] MEDS: MAGNESIUM 2 G PREMIX 50 ML IV SCH ×2 (14:00→14:50)
[2019-10-07 14:05] LABS: PLATELET ESTIMATE INCREASED
[2019-10-08] VITALS (12 sets, daily range): BP systolic 114–161; BP diastolic 60–84
[2019-10-08] MEDS: CLONIDINE 0.1MG TABLET PO PRN (06:37)
[2019-10-08 07:03] LABS: HEMATOCRIT. 24.6 % (42.0-52.0); HEMOGLOBIN. 8.3 g/dL (14.0-18.0); MEAN CORPUSCULAR HEMOGLOBIN 32.1 pg (28.0-32.0); MEAN CORPUSCULAR VOLUME 95.1 fL (80.0-94.0); MEAN PLATELET VOLUME 8.7 fl (7.4-10.4); PLATELET 550 x1000/uL (130-400); RED BLOOD CELL COUNT 2.58 mill/uL (4.7-6.1)
[2019-10-08 08:24] LABS: CHLORIDE 112 mEq/L (98-107)
[2019-10-08] MEDS: PANTOPRAZOLE SODIUM 40 MG/VIAL IV SCH (08:25)
[2019-10-08] MEDS: MULTIVITAMINS,THER W-MINERALS TABLET PO SCH (08:26)
[2019-10-08] MEDS: ASCORBIC ACID 500 MG TABLET PO SCH ×2 (08:26→20:27)
[2019-10-08] MEDS: ZINC SULFATE 220 MG ( 50 ) CAPSULE PO SCH (08:26)
[2019-10-08] MEDS: THIAMINE HCL 100MG TABLET PO SCH (08:26)
[2019-10-08] MEDS: METOPROLOL TARTRATE 25MG TABLET NG SCH (08:26)
[2019-10-08] MEDS: FOLIC ACID 1MG TABLET PO SCH (08:26)
[2019-10-08] MEDS: LACTULOSE 20G/30ML UDC PO SCH (08:26)
[2019-10-08 08:33] LABS: PHOSPHORUS 2.4 mg/dL (2.5-4.9)
[2019-10-08] MEDS: IPRATROPIUM/ALBUTEROL 0.5-3(2.5)MG/3ML NEB HHN SCH ×4 (09:20→20:42)
[2019-10-08] MEDS ORDERED: AMLODIPINE 5MG TABLET PO SCH (10:00)
[2019-10-08] MEDS ORDERED: METOPROLOL TARTRATE 25MG TABLET PO NR (10:10)
[2019-10-08 13:11] LABS: NUCLEATED RED BLOOD CELLS 2 /100 WBC
[2019-10-08 13:12] LABS: PLATELET ESTIMATE INCREASED
[2019-10-08] MEDS ORDERED: MAGNESIUM 2 G PREMIX 50 ML IV NR (16:00)
[2019-10-08] MEDS ORDERED: METOPROLOL TARTRATE 50MG TABLET NG SCH (21:00)
[2019-10-10] MEDS ORDERED: LACTULOSE 20G/30ML UDC PO PRN (21:00)
== END 2019-10-08 23:10 | DRG 870 ==
LOC: ER 20:30 → EDBD 22:07 → MICUSO 22:07 → EDBEDREQ 22:14 → EDBEDREQTM 22:14 → CVICU 09-26 20:12 → MICUSO 09-26 20:49 → CVICU 09-28 18:45 → 3WST 10-03 17:40
PROVIDERS: ADMIT Internal Medicine; ATTEND Internal Medicine
PROC: 5A1955Z Respiratory Ventilation, Greater than 96 Consecutive Hours (ICD-10-PCS; principal; 2019-09-25)
PROC: 0BH17EZ Insertion of Endotracheal Airway into Trachea, Via Natural or Artificial Opening (ICD-10-PCS; 2019-09-25)
PROC: 06HY33Z Insertion of Infusion Device into Lower Vein, Percutaneous Approach (ICD-10-PCS; 2019-09-25)
PROC: 02HV33Z Insertion of Infusion Device into Superior Vena Cava, Percutaneous Approach (ICD-10-PCS; 2019-09-26)
PROC: B548ZZA Ultrasonography of Superior Vena Cava, Guidance (ICD-10-PCS; 2019-09-26)
PROC: 30233N1 Transfusion of Nonautologous Red Blood Cells into Peripheral Vein, Percutaneous Approach (ICD-10-PCS; 2019-10-01)
DX: A41.9 Sepsis, unspecified organism (principal); E43 Unspecified severe protein-calorie malnutrition; G92 Toxic encephalopathy; I21.4 Non-ST elevation (NSTEMI) myocardial infarction; J96.00 Acute respiratory failure, unspecified whether with hypoxia or hypercapnia; N17.0 Acute kidney failure with tubular necrosis; R65.21 Severe sepsis with septic shock; G82.50 Quadriplegia, unspecified; J18.9 Pneumonia, unspecified organism; J98.11 Atelectasis; I42.9 Cardiomyopathy, unspecified; F10.239 Alcohol dependence with withdrawal, unspecified; G93.1 Anoxic brain damage, not elsewhere classified; M62.82 Rhabdomyolysis; R47.01 Aphasia; E87.2 Acidosis; D61.818 Other pancytopenia; E11.9 Type 2 diabetes mellitus without complications; D63.8 Anemia in other chronic diseases classified elsewhere; F03.90 Unspecified dementia, unspecified severity, without behavioral disturbance, psychotic disturbance, mood disturbance, and anxiety; Z60.2 Problems related to living alone; Z20.828 Contact with and (suspected) exposure to other viral communicable diseases; E83.42 Hypomagnesemia; L89.329 Pressure ulcer of left buttock, unspecified stage; L89.319 Pressure ulcer of right buttock, unspecified stage; L89.899 Pressure ulcer of other site, unspecified stage; R26.9 Unspecified abnormalities of gait and mobility; R74.0 Nonspecific elevation of levels of transaminase and lactic acid dehydrogenase [LDH]; E53.8 Deficiency of other specified B group vitamins; R13.10 Dysphagia, unspecified; E83.39 Other disorders of phosphorus metabolism; Z78.1 Physical restraint status; Z68.32 Body mass index [BMI] 32.0-32.9, adult; Z79.899 Other long term (current) drug therapy
CPT/HCPCS: 36415; 36600; 71045; 73060; 73090; 73120; 76700; 76770; 76937; 80048; 80053; 80061; 80202; 80305; 80320; 81003; 82040; 82140; 82375; 82550; 82553; 82607; 82746; 82805; 82962; 83036; 83540; 83550; 83605; 83735; 83880; 84100; 84134; 84145; 84439; 84443; 84478; 84484; 85014; 85018; 85025; 85027; 86705; 86709; 86803; 86850; 86900; 86920; 87070; 87340; 92610; 93005; 93306; 93970; 93971; 94002; 94003; 94640; 96365; 97163; 97166; 97530; 97535; 99291; C1752; C9113; J1642; J1650; J2060; J2250; J2270; J2543; J2704; J3010; J3370; J3475; J3490; J7030; J7050; J7060; P9016; P9047; G0480; U0003-CS

== ENCOUNTER 2019-10-08 21:01 | Inpatient (IN) | payer MEDICARE, OTHER ==
[~2019-10-08] VITALS: Ht 182.9 cm; Wt 109.8 kg
[2019-10-08 21:01] VITALS: BP 144/67
[2019-10-08] MEDS ORDERED: ACETAMINOPHEN 325MG TABLET PO PRN (23:00)
[2019-10-08] MEDS ORDERED: GUAIFENESIN 200MG/10ML SUGAR FREE UDC PO PRN (23:00)
[2019-10-08] MEDS ORDERED: ONDANSETRON HCL 4MG/2ML INJ IV PRN (23:00)
[2019-10-08] MEDS ORDERED: LACTULOSE 20G/30ML UDC PO PRN (23:00)
[2019-10-08] MEDS ORDERED: IPRATROPIUM/ALBUTEROL 0.5-3(2.5)MG/3ML NEB HHN PRN (23:00)
[2019-10-08] MEDS ORDERED: MAGNESIUM/ALUMINUM HYDROXIDE/SIMETHICONE 30ML UDC PO PRN (23:00)
[2019-10-08] MEDS ORDERED: CLONIDINE 0.1MG TABLET PO PRN (23:00)
[2019-10-08] MEDS ORDERED: DOCUSATE SODIUM 250MG CAPSULE PO PRN (23:00)
[2019-10-09 07:05] LABS: CHLORIDE 113 mEq/L (98-107)
[2019-10-09 07:45] LABS: HEMATOCRIT. 22.9 % (42.0-52.0); HEMOGLOBIN. 7.6 g/dL (14.0-18.0); MEAN CORPUSCULAR HEMOGLOBIN 31.7 pg (28.0-32.0); MEAN PLATELET VOLUME 8.8 fl (7.4-10.4); PLATELET 581 x1000/uL (130-400); RED BLOOD CELL COUNT 2.39 mill/uL (4.7-6.1)
[2019-10-09 08:00] VITALS: BP 142/63
[2019-10-09] MEDS: MULTIVITAMINS,THER W-MINERALS TABLET PO SCH (09:28)
[2019-10-09] MEDS: ZINC SULFATE 220 MG ( 50 ) CAPSULE PO SCH (09:28)
[2019-10-09] MEDS: THIAMINE HCL 100MG TABLET PO SCH (09:29)
[2019-10-09] MEDS: POTASSIUM CHLORIDE 20MEQ TABLET SR PO SCH (10:45)
[2019-10-09] MEDS ORDERED: ACETAMINOPHEN 325MG TABLET PO PRN ×2 (12:15→21:15)
[2019-10-09] MEDS ORDERED: LACTULOSE 20G/30ML UDC PO PRN (12:15)
[2019-10-09] MEDS ORDERED: BISACODYL 5MG TABLET PO PRN (12:15)
[2019-10-09] MEDS ORDERED: NA PHOS,M-B/NA PHOS,DI-BA ENEMA 118ML PR PRN (12:15)
[2019-10-09] MEDS ORDERED: ONDANSETRON HCL 4MG/2ML INJ IV PRN (12:30)
[2019-10-09] MEDS ORDERED: GUAIFENESIN 200MG/10ML SUGAR FREE UDC PO PRN (12:30)
[2019-10-09] MEDS ORDERED: DOCUSATE SODIUM 250MG CAPSULE PO PRN (12:30)
[2019-10-09] MEDS ORDERED: MAGNESIUM/ALUMINUM HYDROXIDE/SIMETHICONE 30ML UDC PO PRN (12:30)
[2019-10-09 16:58] LABS: PLATELET ESTIMATE NORMAL
[2019-10-09 17:14] LABS: HEPATITIS A AB IGM NEGATIVE (NEGATIVE)
[2019-10-09 19:42] LABS: HEPATITIS B SURFACE ANTIGEN REACTIVE PEND CONFIR
[2019-10-09 20:00] VITALS: BP 182/108
[2019-10-10 07:40] VITALS: BP 162/80
[2019-10-10] MEDS: POTASSIUM CHLORIDE 20MEQ TABLET SR PO SCH (09:13)
[2019-10-10] MEDS: THIAMINE HCL 100MG TABLET PO SCH (09:13)
[2019-10-10] MEDS: ZINC SULFATE 220 MG ( 50 ) CAPSULE PO SCH (09:13)
[2019-10-10] MEDS: MULTIVITAMINS,THER W-MINERALS TABLET PO SCH (09:13)
[2019-10-10] MEDS ORDERED: POTASSIUM CHLORIDE 20MEQ TABLET SR PO NR (15:52)
[2019-10-10 20:00] VITALS: BP 160/94
[2019-10-10] MEDS: AMLODIPINE 5MG TABLET PO SCH (22:50)
[2019-10-11 07:48] VITALS: BP 159/92
[2019-10-11 08:42] LABS: CHLORIDE 113 mEq/L (98-107)
[2019-10-11 08:47] LABS: PHOSPHORUS 2.3 mg/dL (2.5-4.9)
[2019-10-11 08:53] LABS: HEMATOCRIT. 22.4 % (42.0-52.0); HEMOGLOBIN. 7.3 g/dL (14.0-18.0); MEAN CORPUSCULAR HEMOGLOBIN 31.7 pg (28.0-32.0); MEAN CORPUSCULAR VOLUME 96.5 fL (80.0-94.0); PLATELET 532 x1000/uL (130-400); RED BLOOD CELL COUNT 2.32 mill/uL (4.7-6.1); RED CELL DISTRIBUTION WIDTH 17.9 % (11.6-14.6)
[2019-10-11] MEDS: THIAMINE HCL 100MG TABLET PO SCH (09:43)
[2019-10-11] MEDS: MULTIVITAMINS,THER W-MINERALS TABLET PO SCH (09:43)
[2019-10-11] MEDS: ZINC SULFATE 220 MG ( 50 ) CAPSULE PO SCH (09:43)
[2019-10-11] MEDS: AMLODIPINE 5MG TABLET PO SCH ×3 (09:43→21:00)
[2019-10-11] MEDS: POTASSIUM CHLORIDE 20MEQ TABLET SR PO SCH (09:43)
[2019-10-11] MEDS ORDERED: EPOETIN ALFA 10000UNITS/ML VIAL SUBCUT ONE (11:45)
[2019-10-11 13:28] LABS: NUCLEATED RED BLOOD CELLS 1 /100 WBC; PLATELET ESTIMATE INCREASED
[2019-10-11] MEDS ORDERED: EPOETIN ALFA 10000UNITS/ML VIAL SUBCUT NR (15:00)
[2019-10-11 20:00] VITALS: BP 143/67
[2019-10-11 20:29] LABS: PROTHROMBIN TIME 10.7 sec (9.6-11.0)
[2019-10-11] MEDS ORDERED: HALOPERIDOL LACTATE 5MG/ML VIAL IM NR (21:20)
[2019-10-12] MEDS: THIAMINE HCL 100MG TABLET PO SCH (08:22)
[2019-10-12] MEDS: AMLODIPINE 5MG TABLET PO SCH (08:22)
[2019-10-12] MEDS: MULTIVITAMINS,THER W-MINERALS TABLET PO SCH (08:22)
[2019-10-12] MEDS: POTASSIUM CHLORIDE 20MEQ TABLET SR PO SCH (08:22)
[2019-10-12] MEDS: ZINC SULFATE 220 MG ( 50 ) CAPSULE PO SCH (08:23)
[2019-10-12 08:50] VITALS: BP 139/68
[2019-10-12 11:00] VITALS: BP 139/68
[2019-10-12] MEDS ORDERED: HALOPERIDOL LACTATE 5MG/ML VIAL IM NR (14:00)
[2019-10-16 13:10] LABS: 25-HYDROXY VITAMIN D3 3.3 ng/mL (.)
== END 2019-10-12 14:34 | DRG 91 ==
PROVIDERS: ADMIT Physical Medicine & Rehabilitation Spinal Cord Injury Medicine; ATTEND Internal Medicine
DX: G92 Toxic encephalopathy (principal); J96.00 Acute respiratory failure, unspecified whether with hypoxia or hypercapnia; G82.50 Quadriplegia, unspecified; A41.9 Sepsis, unspecified organism; R65.21 Severe sepsis with septic shock; E43 Unspecified severe protein-calorie malnutrition; I21.4 Non-ST elevation (NSTEMI) myocardial infarction; R47.01 Aphasia; I42.9 Cardiomyopathy, unspecified; N17.9 Acute kidney failure, unspecified; M62.82 Rhabdomyolysis; E87.2 Acidosis; I67.82 Cerebral ischemia; G93.1 Anoxic brain damage, not elsewhere classified; R13.10 Dysphagia, unspecified; K76.0 Fatty (change of) liver, not elsewhere classified; E53.8 Deficiency of other specified B group vitamins; L89.90 Pressure ulcer of unspecified site, unspecified stage; E11.9 Type 2 diabetes mellitus without complications; F03.90 Unspecified dementia, unspecified severity, without behavioral disturbance, psychotic disturbance, mood disturbance, and anxiety; R53.81 Other malaise; R26.2 Difficulty in walking, not elsewhere classified; M54.9 Dorsalgia, unspecified; D63.8 Anemia in other chronic diseases classified elsewhere; E87.6 Hypokalemia; E83.51 Hypocalcemia; D53.9 Nutritional anemia, unspecified; D47.3 Essential (hemorrhagic) thrombocythemia; R47.02 Dysphasia; E83.42 Hypomagnesemia; F10.20 Alcohol dependence, uncomplicated; Z20.828 Contact with and (suspected) exposure to other viral communicable diseases; Z87.891 Personal history of nicotine dependence; Z68.32 Body mass index [BMI] 32.0-32.9, adult
CPT/HCPCS: 36415; 80053; 82140; 82306; 82962; 83735; 84100; 84134; 85025; 86705; 86709; 86803; 86850; 86900; 87340; 92523; 92610; 93970; 97161; 97166; 97530; 97535; J0885; J1630

== ENCOUNTER 2019-11-08 14:52 | Inpatient (IN) | payer MEDICARE, OTHER ==
[~2019-11-08] VITALS: Ht 172.7 cm; Wt 75.3 kg
[2019-11-08 15:33] LABS: CHLORIDE 116 mEq/L (98-107)
[2019-11-08 15:34] LABS: BASOPHILS % 0.4 % (0.0-2.0); EOSINOPHILS % 0.3 % (0.0-5.0); HEMOGLOBIN. 8.9 g/dL (14.0-18.0); LYMPHOCYTES % 12.2 % (20.0-50.0); MEAN CORPUSCULAR HEMOGLOBIN 28.6 pg (28.0-32.0); MEAN CORPUSCULAR VOLUME 93.2 fL (80.0-94.0); MEAN PLATELET VOLUME 7.1 fl (7.4-10.4); MONOCYTES % 7.3 % (2.0-8.0); NEUTROPHILS % 79.8 % (40.0-76.0); PLATELET 463 x1000/uL (130-400); RED BLOOD CELL COUNT 3.11 mill/uL (4.7-6.1); RED CELL DISTRIBUTION WIDTH 17.2 % (11.6-14.6)
[2019-11-08 15:46] LABS: D-DIMER 21.15 mg/L FEU (<0.50); INR 1.1; PROTHROMBIN TIME 11.4 sec (9.6-11.0)
[2019-11-08 18:25] LABS: CLARITY URINE CLEAR (CLEAR); COLOR URINE DARK YELLOW (YELLOW); KETONES URINE TRACE (NEGATIVE); LEUKOCYTE ESTERASE URINE NEGATIVE (NEGATIVE); NITRITE URINE NEGATIVE (NEGATIVE); OCCULT BLOOD URINE NEGATIVE (NEGATIVE); PROTEIN URINE 3+ (NEGATIVE); SPECIFIC GRAVITY URINE 1.021 (1.005-1.030)
[2019-11-08] MEDS ORDERED: MAGNESIUM/ALUMINUM HYDROXIDE/SIMETHICONE 30ML UDC PO PRN (20:15)
[2019-11-08] MEDS ORDERED: DOCUSATE SODIUM 100MG CAPSULE PO PRN (20:15)
[2019-11-08] MEDS ORDERED: ONDANSETRON HCL 4MG/2ML INJ IV PRN (20:15)
[2019-11-08] MEDS ORDERED: IPRATROPIUM/ALBUTEROL 0.5-3(2.5)MG/3ML NEB NEB PRN (20:15)
[2019-11-08] MEDS ORDERED: GUAIFENESIN 200MG/10ML SUGAR FREE UDC PO PRN (20:15)
[2019-11-08] MEDS ORDERED: CLONIDINE 0.1MG TABLET PO PRN (20:15)
[2019-11-08] MEDS ORDERED: ACETAMINOPHEN 325MG TABLET PO PRN (20:15)
[2019-11-08] MEDS ORDERED: VANCOMYCIN 1 G PREMIX 200 ML IV SCH (20:30)
[2019-11-08] MEDS ORDERED: SODIUM CHLORIDE 0.9% 500 ML IV ONE (20:30)
[2019-11-08] MEDS ORDERED: CEFTRIAXONE 1 G PREMIX 50 ML IV NR (20:45)
[2019-11-08] MEDS ORDERED: LEVOFLOXACIN 500MG PREMIX 100 ML IV NR (20:45)
[2019-11-08] MEDS ORDERED: MVI, ADULT NO.1 10 ML, FOLIC ACID 1 MG, THIAMINE HCL 100 MG in SODIUM CHLORIDE 0.9% 1,0... IV NR ×4 (21:00)
[2019-11-08] MEDS: ENOXAPARIN 80MG/0.8ML SYR SUBCUT SCH (21:00)
[2019-11-08 21:01] LABS: FOLIC ACID (FOLATE) SERUM 6.8 ng/mL (>5.38)
[2019-11-08] MEDS: FAMOTIDINE 20MG TABLET PO SCH (22:01)
[2019-11-08] MEDS: PIPERACILLIN/TAZOBACTAM 3.375GM/50ML PREMIX IV NR ×2 (22:01→23:02)
[2019-11-08] MEDS: ASCORBIC ACID 500 MG TABLET PO SCH (22:02)
[2019-11-08] MEDS ORDERED: DILTIAZEM HCL 5MG/ML 5ML VIAL IV NR (22:30)
[2019-11-08] MEDS ORDERED: IOHEXOL-350 100 ML BOTTLE ONE (23:17)
[2019-11-08 23:39] LABS: CREATINE KINASE 65 IU/L (39-308)
[2019-11-08 23:40] LABS: CREATINE KINASE MB FRACTION 2.7 ng/mL (0.5-3.6)
[2019-11-09 01:00] VITALS: BP 150/70
[2019-11-09 04:47] VITALS: BP 96/63
[2019-11-09 07:15] LABS: HEMATOCRIT. 26.4 % (42.0-52.0); HEMOGLOBIN. 8.3 g/dL (14.0-18.0); MEAN CORPUSCULAR HEMOGLOBIN 29.2 pg (28.0-32.0); MEAN CORPUSCULAR VOLUME 92.5 fL (80.0-94.0); MEAN PLATELET VOLUME 7.3 fl (7.4-10.4); PLATELET 389 x1000/uL (130-400); RED BLOOD CELL COUNT 2.85 mill/uL (4.7-6.1); RED CELL DISTRIBUTION WIDTH 16.9 % (11.6-14.6)
[2019-11-09 07:50] LABS: CHLORIDE 119 mEq/L (98-107)
[2019-11-09 08:09] LABS: PHOSPHORUS 3.6 mg/dL (2.5-4.9)
[2019-11-09 08:11] LABS: CREATINE KINASE 51 IU/L (39-308)
[2019-11-09 08:16] LABS: CREATINE KINASE MB FRACTION 4.2 ng/mL (0.5-3.6)
[2019-11-09] MEDS ORDERED: CEFTRIAXONE 1 G PREMIX 50 ML IV SCH (09:00)
[2019-11-09] MEDS: ASPIRIN 81MG EC TABLET PO SCH (10:47)
[2019-11-09] MEDS: ENOXAPARIN 80MG/0.8ML SYR SUBCUT SCH ×2 (10:47→20:35)
[2019-11-09] MEDS: ZINC SULFATE 220 MG ( 50 ) CAPSULE PO SCH (10:47)
[2019-11-09] MEDS: ASCORBIC ACID 500 MG TABLET PO SCH ×2 (10:47→20:29)
[2019-11-09] MEDS: DEXT 5%/LACTATED RINGERS 1,000 ML IV SCH ×2 (10:48→20:47)
[2019-11-09 11:28] LABS: PLATELET ESTIMATE NORMAL
[2019-11-09] MEDS ORDERED: SODIUM HYPOCHLORITE 0.125% 473ML SOLUTION TOP SCH (13:00)
[2019-11-09 13:29] VITALS: BP 92/57
[2019-11-09] MEDS ORDERED: LEVOFLOXACIN 500MG PREMIX 100 ML IV SCH ×2 (14:00→21:00)
[2019-11-09] MEDS: CEFTRIAXONE 1,000 MG in DEXTROSE 5% WATER 50 ML IV SCH (14:52)
[2019-11-09] MEDS: SODIUM HYPOCHLORITE 0.125% 473ML SOLUTION TOP SCH (14:52)
[2019-11-09 16:48] VITALS: BP 115/87
[2019-11-09] MEDS: ACETAMINOPHEN 325MG TABLET PO PRN (20:28)
[2019-11-09] MEDS: FAMOTIDINE 20MG TABLET PO SCH (20:29)
[2019-11-09] MEDS: ZOLPIDEM TARTRATE 5MG TABLET PO PRN (20:29)
[2019-11-09] MEDS: LEVOFLOXACIN 250MG PREMIX 50 ML IV SCH (20:32)
[2019-11-09] MEDS: KETOROLAC 15MG/ML VIAL IV PRN (20:43)
[2019-11-09 21:17] VITALS: BP 139/84
[2019-11-10] VITALS (7 sets, daily range): BP systolic 92–115; BP diastolic 60–79
[2019-11-10] MEDS: ASCORBIC ACID 500 MG TABLET PO SCH ×2 (08:48→20:01)
[2019-11-10] MEDS: ZINC SULFATE 220 MG ( 50 ) CAPSULE PO SCH (08:48)
[2019-11-10] MEDS: ENOXAPARIN 80MG/0.8ML SYR SUBCUT SCH ×2 (08:48→20:02)
[2019-11-10] MEDS: ASPIRIN 81MG EC TABLET PO SCH (08:48)
[2019-11-10] MEDS: SODIUM HYPOCHLORITE 0.125% 473ML SOLUTION TOP SCH (08:49)
[2019-11-10] MEDS: DEXT 5%/LACTATED RINGERS 1,000 ML IV SCH ×2 (14:12→23:40)
[2019-11-10] MEDS: KETOROLAC 15MG/ML VIAL IV PRN ×2 (14:12→19:49)
[2019-11-10] MEDS: CEFTRIAXONE 1,000 MG in DEXTROSE 5% WATER 50 ML IV SCH (14:12)
[2019-11-10] MEDS: ZOLPIDEM TARTRATE 5MG TABLET PO PRN (19:53)
[2019-11-10] MEDS: FAMOTIDINE 20MG TABLET PO SCH (20:01)
[2019-11-10] MEDS: LEVOFLOXACIN 250MG PREMIX 50 ML IV SCH (20:01)
[2019-11-10] MEDS ORDERED: SODIUM CHLORIDE 0.9% 250 ML IV ONE (22:15)
[2019-11-11] VITALS: BP 102/74
[2019-11-11 04:00] VITALS: BP 100/68
[2019-11-11] MEDS: DEXT 5%/LACTATED RINGERS 1,000 ML IV SCH ×2 (08:48→18:25)
[2019-11-11 08:51] VITALS: BP 138/76
[2019-11-11] MEDS: SODIUM HYPOCHLORITE 0.125% 473ML SOLUTION TOP SCH (09:00)
[2019-11-11] MEDS: ASCORBIC ACID 500 MG TABLET PO SCH ×2 (09:00→20:36)
[2019-11-11] MEDS: ASPIRIN 81MG EC TABLET PO SCH (10:02)
[2019-11-11] MEDS: ZINC SULFATE 220 MG ( 50 ) CAPSULE PO SCH (10:02)
[2019-11-11] MEDS: ENOXAPARIN 80MG/0.8ML SYR SUBCUT SCH ×2 (10:04→20:39)
[2019-11-11 12:03] VITALS: BP 123/78
[2019-11-11 16:17] VITALS: BP 139/83
[2019-11-11 16:20] LABS: BASOPHILS % 0.5 % (0.0-2.0); EOSINOPHILS % 1.4 % (0.0-5.0); HEMATOCRIT. 25.4 % (42.0-52.0); HEMOGLOBIN. 8.1 g/dL (14.0-18.0); LYMPHOCYTES % 13.2 % (20.0-50.0); MEAN CORPUSCULAR HEMOGLOBIN 29.4 pg (28.0-32.0); MEAN CORPUSCULAR VOLUME 92.7 fL (80.0-94.0); MEAN PLATELET VOLUME 7.2 fl (7.4-10.4); MONOCYTES % 5.9 % (2.0-8.0); PLATELET 431 x1000/uL (130-400); RED BLOOD CELL COUNT 2.74 mill/uL (4.7-6.1); RED CELL DISTRIBUTION WIDTH 17.3 % (11.6-14.6)
[2019-11-11 16:32] LABS: CHLORIDE 119 mEq/L (98-107)
[2019-11-11] MEDS: CEFTRIAXONE 1,000 MG in DEXTROSE 5% WATER 50 ML IV SCH (18:21)
[2019-11-11 20:00] VITALS: BP 142/88
[2019-11-11] MEDS: LEVOFLOXACIN 250MG PREMIX 50 ML IV SCH (20:36)
[2019-11-11] MEDS: FAMOTIDINE 20MG TABLET PO SCH (20:36)
[2019-11-12] VITALS: BP 126/70
[2019-11-12 04:00] VITALS: BP 138/68
[2019-11-12] MEDS: DEXT 5%/LACTATED RINGERS 1,000 ML IV SCH ×2 (04:48→08:33)
[2019-11-12 08:00] VITALS: BP 115/75
[2019-11-12] MEDS: ASCORBIC ACID 500 MG TABLET PO SCH ×2 (08:12→20:50)
[2019-11-12] MEDS: ASPIRIN 81MG EC TABLET PO SCH (08:12)
[2019-11-12] MEDS: ZINC SULFATE 220 MG ( 50 ) CAPSULE PO SCH (08:12)
[2019-11-12] MEDS: ENOXAPARIN 80MG/0.8ML SYR SUBCUT SCH ×2 (08:12→20:51)
[2019-11-12] MEDS: SODIUM HYPOCHLORITE 0.125% 473ML SOLUTION TOP SCH (08:25)
[2019-11-12] MEDS: CLOPIDOGREL 75MG TABLET PO SCH (11:30)
[2019-11-12 12:00] VITALS: BP 125/78
[2019-11-12] MEDS: CEFTRIAXONE 1,000 MG in DEXTROSE 5% WATER 50 ML IV SCH (13:36)
[2019-11-12 16:09] VITALS: BP 128/74
[2019-11-12 19:37] LABS: ETHANOL BLOOD < 10 mg/dL
[2019-11-12 19:40] LABS: LDL CHOLESTEROL 41 mg/dL (5-100)
[2019-11-12 19:41] LABS: HDL CHOLESTEROL 28 mg/dL (40-59)
[2019-11-12 19:43] LABS: T4 FREE 1.24 ng/dL (0.76-1.46)
[2019-11-12 19:54] LABS: FOLIC ACID (FOLATE) SERUM 5.2 ng/mL (>5.38)
[2019-11-12 20:00] VITALS: BP 126/72
[2019-11-12] MEDS: FAMOTIDINE 20MG TABLET PO SCH (20:50)
[2019-11-12] MEDS: LEVOFLOXACIN 250MG PREMIX 50 ML IV SCH (20:50)
[2019-11-13] VITALS: BP 118/70
[2019-11-13 04:00] VITALS: BP 116/68
[2019-11-13] MEDS: DEXT 5%/LACTATED RINGERS 1,000 ML IV SCH ×2 (04:57→10:39)
[2019-11-13 08:00] VITALS: BP 115/80
[2019-11-13] MEDS: ZINC SULFATE 220 MG ( 50 ) CAPSULE PO SCH (08:36)
[2019-11-13] MEDS: CLOPIDOGREL 75MG TABLET PO SCH (08:36)
[2019-11-13] MEDS: ENOXAPARIN 80MG/0.8ML SYR SUBCUT SCH ×2 (08:36→21:12)
[2019-11-13] MEDS: ASCORBIC ACID 500 MG TABLET PO SCH ×2 (08:36→21:12)
[2019-11-13] MEDS: SODIUM HYPOCHLORITE 0.125% 473ML SOLUTION TOP SCH (08:37)
[2019-11-13 12:00] VITALS: BP 134/77
[2019-11-13 16:00] VITALS: BP 149/88
[2019-11-13 20:00] VITALS: BP 108/81
[2019-11-13] MEDS: FAMOTIDINE 20MG TABLET PO SCH (21:12)
[2019-11-14] VITALS: BP_SYST 112
[2019-11-14] MEDS: DEXT 5%/LACTATED RINGERS 1,000 ML IV SCH (02:10)
[2019-11-14 04:00] VITALS: BP 112/72
[2019-11-14 08:00] VITALS: BP 137/80
[2019-11-14] MEDS: ASCORBIC ACID 500 MG TABLET PO SCH (08:46)
[2019-11-14] MEDS: ACETAMINOPHEN 325MG TABLET PO PRN (08:46)
[2019-11-14] MEDS: CLOPIDOGREL 75MG TABLET PO SCH (08:46)
[2019-11-14] MEDS: ZINC SULFATE 220 MG ( 50 ) CAPSULE PO SCH (08:46)
[2019-11-14] MEDS: ENOXAPARIN 80MG/0.8ML SYR SUBCUT SCH (08:46)
[2019-11-14] MEDS: SODIUM HYPOCHLORITE 0.125% 473ML SOLUTION TOP SCH (08:47)
[2019-11-14 12:00] VITALS: BP 138/78
[2019-11-14 16:02] VITALS: BP 138/78
== END 2019-11-14 14:55 | DRG 871 ==
LOC: ER 15:20 → 6WST 19:55 → UNDOADMIN 19:55 → MICUSO 19:55 → EDBEDREQ 20:02 → EDBEDREQTM 20:02 → SUPCPDRO 20:14
PROVIDERS: ADMIT Internal Medicine; ATTEND Internal Medicine
DX: A41.9 Sepsis, unspecified organism (principal); L89.154 Pressure ulcer of sacral region, stage 4; L89.304 Pressure ulcer of unspecified buttock, stage 4; E43 Unspecified severe protein-calorie malnutrition; G92 Toxic encephalopathy; J96.91 Respiratory failure, unspecified with hypoxia; N17.0 Acute kidney failure with tubular necrosis; G82.50 Quadriplegia, unspecified; I21.A1 Myocardial infarction type 2; I63.9 Cerebral infarction, unspecified; I50.22 Chronic systolic (congestive) heart failure; I82.403 Acute embolism and thrombosis of unspecified deep veins of lower extremity, bilateral; I42.9 Cardiomyopathy, unspecified; R47.01 Aphasia; F03.90 Unspecified dementia, unspecified severity, without behavioral disturbance, psychotic disturbance, mood disturbance, and anxiety; I11.0 Hypertensive heart disease with heart failure; E11.9 Type 2 diabetes mellitus without complications; D52.9 Folate deficiency anemia, unspecified; R65.20 Severe sepsis without septic shock; R13.10 Dysphagia, unspecified; I25.2 Old myocardial infarction; Z68.25 Body mass index [BMI] 25.0-25.9, adult
CPT/HCPCS: 36415; 70544; 70551; 71045; 71275; 80053; 80061; 80320; 81003; 82040; 82550; 82553; 82607; 82728; 82746; 82962; 83036; 83540; 83550; 83605; 83615; 83735; 83880; 84100; 84134; 84145; 84439; 84443; 84481; 84484; 85025; 85379; 87070; 87077; 87186; 92610; 93005; 93306; 93880; 93970; 97162; 97166; 97530; 99291; J0696; J1650; J1885; J1956; J2543; J3370; J3411; J3490; J7030; J7040; J7060; J7121; Q9967; G0480

== ENCOUNTER 2019-12-14 08:44 | Inpatient (IN) | payer MEDICARE, OTHER ==
[~2019-12-14] VITALS: Ht 193 cm; Wt 89.8 kg
[2019-12-14] MEDS ORDERED: VANCOMYCIN 1 G PREMIX 200 ML IV ONE (10:00)
[2019-12-14] MEDS ORDERED: PIPERACILLIN/TAZ 3.375G PREMIX 50 ML IV ONE (10:00)
[2019-12-14 10:05] LABS: BASOPHILS % 0.2 % (0.0-2.0); EOSINOPHILS % 0.1 % (0.0-5.0); HEMATOCRIT. 22.9 % (42.0-52.0); LYMPHOCYTES % 8.4 % (20.0-50.0); MEAN CORPUSCULAR HEMOGLOBIN 27.4 pg (28.0-32.0); MEAN CORPUSCULAR VOLUME 90.3 fL (80.0-94.0); MEAN PLATELET VOLUME 7.4 fl (7.4-10.4); MONOCYTES % 6.7 % (2.0-8.0); NEUTROPHILS % 84.6 % (40.0-76.0); PLATELET 389 x1000/uL (130-400); RED BLOOD CELL COUNT 2.53 mill/uL (4.7-6.1)
[2019-12-14 10:07] LABS: HEMOGLOBIN. 6.9 g/dL (14.0-18.0)
[2019-12-14 10:09] LABS: CHLORIDE 123 mEq/L (98-107)
[2019-12-14 10:19] LABS: CREATINE KINASE 94 IU/L (39-308)
[2019-12-14 11:23] LABS: BG BASE EXCESS -10.6 mmol/L (-2.0-2.0); BG CARBOXYHEMOGLOBIN 0.3 % (0.5-1.5); BG DEOXYHEMOGLOBIN 0.5 % (0.0-5.0); BG FRACTION INSPIRED OXYGEN 100; BG HCO3 ACT 12.2 mmol/L (22.0-26.0); BG METHEMOGLOBIN 0.2 % (0.0-1.5); BG OXYGEN SATURATION 99.5 % (92.0-98.5); BG PCO2 18.1 mmHg (35.0-45.0); BG PH 7.445 (7.350-7.450); BG SAMPLE SITE RIGHT RADIAL; BG TOTAL HEMOGLOBIN 7.3 g/dL (12.0-18.0); BG VENT MODE MASK - NRB
[2019-12-14 11:32] LABS: CLARITY URINE TURBID (CLEAR); COLOR URINE YELLOW (YELLOW); KETONES URINE NEGATIVE (NEGATIVE); LEUKOCYTE ESTERASE URINE 3+ (NEGATIVE); NITRITE URINE NEGATIVE (NEGATIVE); OCCULT BLOOD URINE TRACE (NEGATIVE); PH URINE 5.5 (4.5-8.0); PROTEIN URINE 2+ (NEGATIVE); SPECIFIC GRAVITY URINE 1.015 (1.005-1.030); UROBILINOGEN URINE 0.2 E.U./dL (0.2-1.0)
[2019-12-14 11:45] LABS: D-DIMER 6.93 mg/L FEU (<0.50); INR 1.1; PROTHROMBIN TIME 11.6 sec (9.6-11.0)
[2019-12-14] MEDS ORDERED: ZOLPIDEM TARTRATE 5MG TABLET PO PRN (13:15)
[2019-12-14] MEDS ORDERED: NITROGLYCERIN 0.4MG TABLET SL SL PRN (13:15)
[2019-12-14] MEDS ORDERED: ONDANSETRON HCL 4MG/2ML INJ IV PRN (13:15)
[2019-12-14] MEDS ORDERED: TRAMADOL 50MG TABLET PO PRN (13:15)
[2019-12-14] MEDS ORDERED: ALBUTEROL 6.7GM HFA INHALER ORI PRN ×2 (13:15)
[2019-12-14] MEDS ORDERED: DOCUSATE SODIUM 100MG CAPSULE PO PRN (13:15)
[2019-12-14] MEDS ORDERED: CLONIDINE 0.1MG TABLET PO PRN (13:15)
[2019-12-14] MEDS ORDERED: GUAIFENESIN 200MG/10ML SUGAR FREE UDC PO PRN (13:15)
[2019-12-14] MEDS ORDERED: ACETAMINOPHEN 325MG TABLET PO PRN ×2 (13:15)
[2019-12-14] MEDS ORDERED: MAGNESIUM/ALUMINUM HYDROXIDE/SIMETHICONE 30ML UDC PO PRN (13:15)
[2019-12-14] MEDS ORDERED: SODIUM CHLORIDE 0.9% 1000ML BAG (SEPSIS BOLUS) IV SCH (13:15)
[2019-12-14 14:00] VITALS: BP 119/82
[2019-12-14 14:30] VITALS: BP 109/82
[2019-12-14] MEDS ORDERED: ASCO500C18 PO (14:33)
[2019-12-14] MEDS ORDERED: CLOP75TA4 MT (14:33)
[2019-12-14] MEDS ORDERED: MULT-230 MT (14:33)
[2019-12-14] MEDS ORDERED: LACT10SO7 MT (14:33)
[2019-12-14] MEDS ORDERED: AMLO5TAB4 MT (14:33)
[2019-12-14] MEDS ORDERED: FERR325T6 MT (14:33)
[2019-12-14] MEDS ORDERED: FAMO20TA8 MT (14:33)
[2019-12-14] MEDS ORDERED: ACET650T37 MT (14:33)
[2019-12-14] MEDS ORDERED: DOCU-138 MT (14:33)
[2019-12-14] MEDS ORDERED: THIA50TA11 PO (14:33)
[2019-12-14] MEDS: CEFTRIAXONE 1,000 MG in DEXTROSE 5% WATER 50 ML IV SCH (15:22)
[2019-12-14] MEDS: ENOXAPARIN 40MG/0.4ML SYR SUBCUT SCH (15:24)
[2019-12-14] MEDS: ZINC SULFATE 220 MG ( 50 ) CAPSULE PO SCH (15:24)
[2019-12-14] MEDS: ASCORBIC ACID 500 MG TABLET PO SCH ×2 (15:25→22:23)
[2019-12-14] MEDS: AZITHROMYCIN 500 MG in DEXT 5% WATER 250 ML IV SCH (15:53)
[2019-12-14] MEDS: GUAIFENESIN 600MG ER TABLET PO SCH ×2 (15:58→22:23)
[2019-12-14 16:00] VITALS: BP 131/67
[2019-12-14] MEDS: PIPERACILLIN/TAZ 3.375G PREMIX 50 ML IV SCH ×2 (17:06→22:24)
[2019-12-14] MEDS: ALBUTEROL 6.7GM HFA INHALER ORI SCH (18:00)
[2019-12-14] MEDS: VANCOMYCIN 750 MG PREMIX 150 ML IV SCH (22:22)
[2019-12-14] MEDS: FAMOTIDINE 20MG TABLET PO SCH (22:23)
[2019-12-15] VITALS (7 sets, daily range): BP systolic 102–122; BP diastolic 51–82
[2019-12-15 01:55] LABS: CREATINE KINASE 95 IU/L (39-308)
[2019-12-15 01:56] LABS: CREATINE KINASE MB FRACTION 9.9 ng/mL (0.5-3.6)
[2019-12-15] MEDS: ALBUTEROL 6.7GM HFA INHALER ORI SCH ×3 (06:00→11:11)
[2019-12-15] MEDS: PIPERACILLIN/TAZ 3.375G PREMIX 50 ML IV SCH ×2 (07:00→13:39)
[2019-12-15] MEDS: CEFTRIAXONE 1,000 MG in DEXTROSE 5% WATER 50 ML IV SCH (08:40)
[2019-12-15] MEDS: FAMOTIDINE 20MG TABLET PO SCH ×2 (08:41→21:19)
[2019-12-15] MEDS: ZINC SULFATE 220 MG ( 50 ) CAPSULE PO SCH (08:41)
[2019-12-15] MEDS: AZITHROMYCIN 500 MG in DEXT 5% WATER 250 ML IV SCH (08:41)
[2019-12-15] MEDS: GUAIFENESIN 600MG ER TABLET PO SCH ×2 (08:41→21:19)
[2019-12-15] MEDS: ASCORBIC ACID 500 MG TABLET PO SCH ×2 (08:41→21:19)
[2019-12-15] MEDS: ASPIRIN 325MG EC TABLET PO SCH (08:41)
[2019-12-15] MEDS: VANCOMYCIN 750 MG PREMIX 150 ML IV SCH ×2 (09:14→21:18)
[2019-12-15 12:24] LABS: BASOPHILS % 0.3 % (0.0-2.0); EOSINOPHILS % 0.6 % (0.0-5.0); LYMPHOCYTES % 9.9 % (20.0-50.0); MEAN CORPUSCULAR HEMOGLOBIN 27.4 pg (28.0-32.0); MEAN CORPUSCULAR VOLUME 89.5 fL (80.0-94.0); MEAN PLATELET VOLUME 7.4 fl (7.4-10.4); MONOCYTES % 6.8 % (2.0-8.0); NEUTROPHILS % 82.4 % (40.0-76.0); PLATELET 292 x1000/uL (130-400); RED BLOOD CELL COUNT 2.91 mill/uL (4.7-6.1); RED CELL DISTRIBUTION WIDTH 16.5 % (11.6-14.6)
[2019-12-15 12:35] LABS: CHLORIDE 120 mEq/L (98-107)
[2019-12-15] MEDS: ENOXAPARIN 40MG/0.4ML SYR SUBCUT SCH (13:39)
[2019-12-15] MEDS ORDERED: ENOXAPARIN 40MG/0.4ML SYR SUBCUT NR (14:00)
[2019-12-15] MEDS: ENOXAPARIN 80MG/0.8ML SYR SUBCUT SCH (21:55)
[2019-12-15] MEDS: PIPERACILLIN/TAZOBACTAM 3.375 G in DEXT 5% WATER 100 ML IV SCH (21:55)
[2019-12-16] VITALS: BP 97/52
[2019-12-16 04:00] VITALS: BP 116/61
[2019-12-16] MEDS: PIPERACILLIN/TAZOBACTAM 3.375 G in DEXT 5% WATER 100 ML IV SCH ×3 (06:16→23:03)
[2019-12-16 07:02] LABS: BASOPHILS % 0.2 % (0.0-2.0); EOSINOPHILS % 0.7 % (0.0-5.0); HEMATOCRIT. 25.3 % (42.0-52.0); LYMPHOCYTES % 10.1 % (20.0-50.0); MEAN CORPUSCULAR HEMOGLOBIN 27.8 pg (28.0-32.0); MEAN CORPUSCULAR VOLUME 88.2 fL (80.0-94.0); MEAN PLATELET VOLUME 7.6 fl (7.4-10.4); MONOCYTES % 5.4 % (2.0-8.0); NEUTROPHILS % 83.6 % (40.0-76.0); PLATELET 328 x1000/uL (130-400); RED BLOOD CELL COUNT 2.87 mill/uL (4.7-6.1); RED CELL DISTRIBUTION WIDTH 16.6 % (11.6-14.6)
[2019-12-16 07:09] LABS: CHLORIDE 120 mEq/L (98-107)
[2019-12-16 07:17] LABS: PHOSPHORUS 3.1 mg/dL (2.5-4.9)
[2019-12-16 08:00] VITALS: BP 115/58
[2019-12-16] MEDS: ASCORBIC ACID 500 MG TABLET PO SCH ×2 (09:53→23:03)
[2019-12-16] MEDS: CEFTRIAXONE 1,000 MG in DEXTROSE 5% WATER 50 ML IV SCH (09:53)
[2019-12-16] MEDS: ASPIRIN 325MG EC TABLET PO SCH (09:53)
[2019-12-16] MEDS: FAMOTIDINE 20MG TABLET PO SCH ×2 (09:53→23:03)
[2019-12-16] MEDS: GUAIFENESIN 600MG ER TABLET PO SCH ×2 (09:54→23:03)
[2019-12-16] MEDS: ZINC SULFATE 220 MG ( 50 ) CAPSULE PO SCH (09:54)
[2019-12-16] MEDS: ENOXAPARIN 80MG/0.8ML SYR SUBCUT SCH ×2 (09:55→23:12)
[2019-12-16] MEDS: AZITHROMYCIN 500 MG in DEXT 5% WATER 250 ML IV SCH (10:55)
[2019-12-16 12:00] VITALS: BP 130/51
[2019-12-16 15:49] VITALS: BP 145/76
[2019-12-16 20:00] VITALS: BP 122/80
[2019-12-16] MEDS: VANCOMYCIN 1250MG in DEXTROSE 5% WATER 250ML IV SCH (23:04)
[2019-12-17] VITALS: BP 118/76
[2019-12-17 04:00] VITALS: BP 114/88
[2019-12-17] MEDS: PIPERACILLIN/TAZOBACTAM 3.375 G in DEXT 5% WATER 100 ML IV SCH ×3 (06:00→22:01)
[2019-12-17] MEDS: CEFTRIAXONE 1,000 MG in DEXTROSE 5% WATER 50 ML IV SCH (07:57)
[2019-12-17 08:00] VITALS: BP 124/62
[2019-12-17] MEDS: ZINC SULFATE 220 MG ( 50 ) CAPSULE PO SCH (08:00)
[2019-12-17] MEDS: ASCORBIC ACID 500 MG TABLET PO SCH ×2 (08:01→22:00)
[2019-12-17] MEDS: FAMOTIDINE 20MG TABLET PO SCH ×2 (08:01→22:00)
[2019-12-17] MEDS: GUAIFENESIN 600MG ER TABLET PO SCH ×2 (08:01→22:00)
[2019-12-17] MEDS: ASPIRIN 325MG EC TABLET PO SCH (08:01)
[2019-12-17] MEDS: AZITHROMYCIN 500 MG in DEXT 5% WATER 250 ML IV SCH (10:04)
[2019-12-17] MEDS: ENOXAPARIN 80MG/0.8ML SYR SUBCUT SCH ×2 (10:09→22:01)
[2019-12-17 12:13] VITALS: BP 108/58
[2019-12-17 16:17] LABS: CHLORIDE 113 mEq/L (98-107)
[2019-12-17 16:30] VITALS: BP 106/64
[2019-12-17] MEDS ORDERED: ALBUTEROL (0.083%) 2.5MG/3ML NEB HHN PRN (16:30)
[2019-12-17] MEDS: SODIUM HYPOCHLORITE 0.125% 473ML SOLUTION TOP SCH (17:00)
[2019-12-17] MEDS ORDERED: ALBUTEROL (0.083%) 2.5MG/3ML NEB HHN SCH (18:00)
[2019-12-17 20:00] VITALS: BP 128/50
[2019-12-17] MEDS: VANCOMYCIN 1250MG in DEXTROSE 5% WATER 250ML IV SCH (22:01)
[2019-12-18 00:11] VITALS: BP 140/50
[2019-12-18 04:00] VITALS: BP 148/51
[2019-12-18] MEDS: PIPERACILLIN/TAZOBACTAM 3.375 G in DEXT 5% WATER 100 ML IV SCH ×2 (05:04→13:53)
[2019-12-18 08:06] VITALS: BP 126/72
[2019-12-18] MEDS ORDERED: AZITHROMYCIN 500 MG TABLET PO SCH (09:00)
[2019-12-18] MEDS: ASPIRIN 325MG EC TABLET PO SCH (09:30)
[2019-12-18] MEDS: GUAIFENESIN 600MG ER TABLET PO SCH (09:30)
[2019-12-18] MEDS: FAMOTIDINE 20MG TABLET PO SCH (09:30)
[2019-12-18] MEDS: ASCORBIC ACID 500 MG TABLET PO SCH (09:30)
[2019-12-18] MEDS: ZINC SULFATE 220 MG ( 50 ) CAPSULE PO SCH (09:30)
[2019-12-18] MEDS: SODIUM HYPOCHLORITE 0.125% 473ML SOLUTION TOP SCH (09:31)
[2019-12-18] MEDS: CEFTRIAXONE 1,000 MG in DEXTROSE 5% WATER 50 ML IV SCH (09:31)
[2019-12-18] MEDS: ENOXAPARIN 80MG/0.8ML SYR SUBCUT SCH (09:44)
[2019-12-18 12:11] VITALS: BP 113/70
[2019-12-18 15:34] VITALS: BP 113/70
[2019-12-18 16:06] VITALS: BP 103/64
== END 2019-12-18 17:00 | DRG 871 ==
LOC: ER 08:51 → 7WST 11:48 → EDBEDREQ 11:51 → EDBEDREQSVC 11:51 → ENRESERV 12:38 → 7WST 13:21 → 6WST 12-15 17:41
PROVIDERS: ADMIT Internal Medicine; ATTEND Internal Medicine
PROC: 30233N1 Transfusion of Nonautologous Red Blood Cells into Peripheral Vein, Percutaneous Approach (ICD-10-PCS; principal; 2019-12-15)
DX: A41.9 Sepsis, unspecified organism (principal); L89.154 Pressure ulcer of sacral region, stage 4; J96.01 Acute respiratory failure with hypoxia; E43 Unspecified severe protein-calorie malnutrition; N17.0 Acute kidney failure with tubular necrosis; G92 Toxic encephalopathy; E87.0 Hyperosmolality and hypernatremia; N39.0 Urinary tract infection, site not specified; I13.0 Hypertensive heart and chronic kidney disease with heart failure and stage 1 through stage 4 chronic kidney disease, or unspecified chronic kidney disease; E87.2 Acidosis; R65.20 Severe sepsis without septic shock; E11.22 Type 2 diabetes mellitus with diabetic chronic kidney disease; F03.90 Unspecified dementia, unspecified severity, without behavioral disturbance, psychotic disturbance, mood disturbance, and anxiety; E83.51 Hypocalcemia; D64.9 Anemia, unspecified; N18.9 Chronic kidney disease, unspecified; Z20.828 Contact with and (suspected) exposure to other viral communicable diseases; J44.9 Chronic obstructive pulmonary disease, unspecified; F10.10 Alcohol abuse, uncomplicated; Y90.9 Presence of alcohol in blood, level not specified; L89.210 Pressure ulcer of right hip, unstageable; E11.51 Type 2 diabetes mellitus with diabetic peripheral angiopathy without gangrene; I50.9 Heart failure, unspecified; Z86.73 Personal history of transient ischemic attack (TIA), and cerebral infarction without residual deficits; Z68.24 Body mass index [BMI] 24.0-24.9, adult
CPT/HCPCS: 36415; 36600; 71045; 80048; 80053; 80202; 81003; 82040; 82375; 82550; 82553; 82728; 82805; 83036; 83605; 83615; 83735; 83880; 84100; 84134; 84145; 84484; 85025; 85379; 85384; 86140; 86850; 86900; 86920; 87077; 87186; 87635; 93005; 93923; 93970; 99285; J0456; J0696; J1650; J2543; J3370; J7060; P9016